=== PATIENT | female | born 1985 | race Two or more races ===

== ENCOUNTER 2024-01-03 09:17 | Outpatient (AMB) | payer OTHER, SELFPAY ==
--- NOTE | 2024-01-03 09:31 | A.OFFPC_ITS ---
Vital Signs 01/03/24 09:47 Height 5 ft 1.22 in Weight 247 lb 4 oz BMI 46.4 BP 112/74 Blood Pressure Location Rt brachial Position Sitting Respiration 16 Pulse 75 Pulse Source Pulse Oximeter Temp 98.8 F Temp Source Oral Pulse Oximetry (%) 98 Oxygen Delivery Method Room Air Intake Visit Reasons: New patient Intake Note: New patient visit. Taking Bisoprolol hydrochlorothiazide 12.5 mg, from [facility]. Clinical Nurse Reviewer Required: Yes Allergies No Known Allergies Allergy (Verified 01/03/24 09:37) Medication List - Last Reconciled 01/03/24 by Deanne Fox PA-C bisoprolol fumarate 5 mg PO DAILY hydrochlorothiazide 12.5 mg PO QAM Tobacco use date assessed: 01/03/24 Dental Screening Dental Screen Date: 01/03/24 Did you have a dental visit in the last 12 months?: Yes Did you have a dental problem in the last 6 months where you did not have access to dental care?: No Was dental information given to patient?: Patient has dentist HPI New patient HPI Details Pt is a 38 y/o female who presents today to [facility]. She moved from the to [place] in August. She reports a hx of htn, paroxysmal SVT, uterine fibroids. 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 She does get palpitations but it is much more infrequent. She notices it mostly at night. No dizziness, sob or chest pain, even when she gets the sx. She has never had a sleep study. She does report that she snores often at night and does feel tired somewhat during the day. She states her blood pressure has been well-controlled with hydrochlorothiazide and bisoprolol 5 mg. She states when they added on the beta-jo it has helped the palpitations but she still does get them. -She did have 2 holter monitors which sh owed, nsr and episodes of ventricular bigeminy and SVT. She does have copies of her Holter monitors. General: She would like to discuss weight loss drugs and or surgery. She says that she wants her labs checked to see if she would be a candidate for something such as Mounjaro. She is tried diets in the past with calorie restriction and exercise but has never really been able to maintain a weight loss. Her BMI is 46. 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 Fam hx of prostate ca in father PFSH Medical History (Updated 01/03/24 @ 10:21 by Deanne Fox PA-C) Snoring PSVT (paroxysmal supraventricular tachycardia) Sinusitis Asthma Thyroid disease Palpitations HTN (hypertension) Surgical History (Updated 01/03/24 @ 09:53 by Bárbara Araiza CMA) S/P bilateral breast reduction H/O myomectomy Family History (Updated 01/03/24 @ 09:52 by Bárbara Araiza CMA) Mother Asthma HTN (hypertension) Thyroid disorder Father HTN (hypertension) Hypercholesteremia Cancer Social History (Updated 01/03/24 @ 09:45 by Bárbara Araiza CMA) Housing: Apartment Patient Tobacco Use Status: Former Tobacco user Tobacco use type: Cigarette Cigarettes Per Day: 6 Years Smoked: 5 quit 08/2023 e-Cigarette/Vaping Use: Never Used service: No Current occupational status: employed 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 Current occupational exposures/hazards: No Cognitive needs: No Hearing needs: No Vision needs: No Questionnaire PHQ-9 Over the last 2 weeks, how often have you been bothered by any of the following problems? 1. Little interest or pleasure in doing things: not at all 2. Feeling down, depressed, or hopeless: not at all 3. Trouble falling or staying asleep, or sleeping too much: not at all 4. Feeling tired or having little energy: not at all 5. Poor appetite or overeating: not at all 6. Feeling bad about yourself - or that you are a failure or have let yourself or your family down: not at all 7. Trouble concentrating on things, such as reading the newspaper or watching television: not at all 8. Moving or speaking so slowly that other people could have noticed. Or the opposite - being so fidgety or restless that you have been moving around a lot more than usual: not at all 9. Thoughts that you would be better off or of hurting yourself in some way: not at all Total score: 0 Depression Screening Interpretation: Negative Depression Screening Done: Yes 73782 - PHQ-9 Billing: Yes Source: Developed by Drs. Ernesto Dasilva, Lesley Morris, Emmanuel Billy and colleagues, with an educational reese from [employer]. Thrive Questionnaire Date Thrive assessed: 01/03/24 I am a: Patient What is your living situation today?: I have a steady place to live Within the past 12 months, did the food you bought not last and you didn't have the money to get more?: Never true Within the past 12 months, did you worry whether your food would run out before you got money to buy more?: Never true Do you have trouble paying for medicines?: No Do you have trouble getting transportation to medical appointments?: No Do you have trouble paying your heating and electricity bill?: No Do you have trouble taking care of your child, family member or friend?: No Do you have trouble with day-to-day activities such as bathing, preparing meals, shopping, managing finances, etc.?: No Are you currently unemployed and looking for a job?: No Are you interested in more education?: No Please select the resources that you would like help with: None Currently or been in a relationship where the following occur: no concerns reported THRIVE Score: 0 AUDIT C Alcohol Use Questionnaire (AUDIT-C) 1. How often do you have a drink containing alcohol?: Monthly or less 2. How many drinks containing alcohol do you have on a typical day when you are drinking?: 1 or 2 (2-3 beers) 3. How often do you have six or more drinks on one occasion?: Never Total Score: 1 JIMMY-7 AMB Questionnaire JIMMY-7 Date JIMMY - 7 assessed: 01/03/24 Feeling nervous, anxious, or on edge: 0 = Not at all Not being able to stop or control worryin = Not at all Worrying too much about different things: 0 = Not at all Trouble relaxin = Not at all Being so restless that it is hard to sit still: 0 = Not at all Becoming easily annoyed or irritable: 0 = Not at all Feeling afraid as if something awful might happen: 0 = Not at all Total JIMMY-7 score (0-4 normal; 5-9 mild; 10-14 moderate; 15-21 severe): 0 Source: Developed by Drs. Ernesto Dasilva, Lesley Morris, Emmanuel Billy and colleagues, with an educational reese from [employer]. JIMMY-7 Assessment Billing JIMMY-7 Assessment Tool: JIMMY-7 Assessment 86732 ACT Questionnaire In the past 4 weeks, how much of the time did your asthma keep you from getting as much done at work, school or at home?: None of the time During the past 4 weeks, how often have you had shortness of breath?: Not at all During the past 4 weeks, how often did your asthma symptoms wake you up at night or earlier than usual in the morning?: Not at all During the past 4 weeks, how often have you had to use your rescue inhaler or nebulizer medication?: Not at all How would you rate your asthma control during the past 4 weeks?: Completely controlled ACT Interpretation: Negative Score: 25 Physical exam (Primary Care) Vital Signs: Last Vital Signs Temp 98.8 F 01/03/24 09:47 Pulse 75 01/03/24 09:47 Resp 16 01/03/24 09:47 BP 112/74 01/03/24 09:47 Pulse Ox 98 01/03/24 09:47 Oxygen Delivery Method Room Air 01/03/24 09:47 BMI result Body Mass Index 46.4 BMI Assessment/Plan discussion: High (discussed meds) BMI High, discussed plan: lifestyle, weight reduction, dietary and physical activity Tobacco/Smoking Status: Tobacco use Status Tobacco use date assessed 01/03/24 01/03/24 09:54 Patient Tobacco Use Status Former Tobacco user 01/03/24 09:54 Tobacco use type Cigarette 01/03/24 09:54 e-Cigarette/Vaping Use Never Used 01/03/24 09:54 PHQ-9: PHQ-9 Score PHQ-9: Total score 0 01/03/24 10:10 Depression Screening Interpretation: Negative Thrive Assessment: Date of Thrive Assessment Date Thrive assessed 01/03/24 01/03/24 09:54 Currently or been in a relationship where the following occur: no concerns reported Const Orientation/consciousness: patient oriented x3 HENMT Ears: hearing grossly normal bilaterally Neck Thyroid: Thyroid normal Lymphatic: no lymphadenopathy noted Resp Auscultation: clear to auscultation bilaterally Cardio Rate: regular rate Rhythm: regular rhythm Heart sounds: S1 normal heart sound present and S2 normal heart sound present GI Inspection: Yes normal to inspection Palpation (GI): Soft to palpation and Other GI palpation findings present (nontender, no cva tenderness) Auscultation: normoactive bowel sounds Rectal Exam - Female: deferred Skin General skin exam: no rashes or lesions noted Neuro General: patient oriented x3, gait normal and no focal motor deficits Assessment and Plan Assessment & Plan (1) HTN (hypertension): Code(s): I10 - Essential (primary) hypertension Qualifiers: Hypertension type: primary hypertension Qualified Code(s): I10 - Essential (primary) hypertension Plan: continue current treatment plan (2) PSVT (paroxysmal supraventricular tachycardia): Code(s): I47.10 - Supraventricular tachycardia, unspecified Plan: Advised to bring a copy of her Holter monitors to her cardiology appointment. Referral placed. Continue with the bisoprolol. Medications refilled. Labs ordered. (3) Palpitations: Code(s): R00.2 - Palpitations Plan: As above (4) Snoring: Code(s): R06.83 - Snoring Plan: Sleep study ordered. Weight loss encouraged. Orders: Orders Comprehensive [place]. Panel Fast Today I10 - Essential (primary) hypertension, I47.10 - Supraventricular tachycardia, unspecified, R00.2 - Palpitations Lipid Panel Today I10 - Essential (primary) hypertension, I47.10 - Supravent ricular tachycardia, unspecified, R00.2 - Palpitations TSH reflex Free T4 Today I10 - Essential (primary) hypertension, I47.10 - Supraventricular tachycardia, unspecified, R00.2 - Palpitations Complete Blood Count Auto Diff Today I10 - Essential (primary) hypertension, I47.10 - Supraventricular tachycardia, unspecified, R00.2 - Palpitations Vitamin B12 and Folate Today I10 - Essential (primary) hypertension, I47.10 - Supraventricular tachycardia, unspecified, R00.2 - Palpitations RT home sleep study Today I10 - Essential (primary) hypertension, I47.10 - Supraventricular tachycardia, unspecified, R06.83 - Snoring Referrals VENEER PULLER Referral Z01.419 - Encounter for gynecological examination (general) (routine) without abnormal findings Cardiology Referral I10 - Essential (primary) hypertension, I47.10 - Supraventricular tachycardia, unspecified, R00.2 - Palpitations Medications: New hydrochlorothiazide 12.5 mg PO QAM 90 caps 1RF bisoprolol fumarate 5 mg PO DAILY 90 tabs 0RF Coding Level of Care Code New Pt Level 4 (66414) Complex EM visit Add On G2211 Diagnoses Primary hypertension I10 Hypertension type: primary hypertension PSVT (paroxysmal supraventricular tachycardia) I47.10 Palpitations R00.2 Snoring R06.83 Additional Codes JIMMY-7 Assessment Billing - JIMMY-7 Assessment Tool: JIMMY-7 Assessment 02800 ([id number])
[2024-01-03 09:47] VITALS: BP 112/74; PULSE 75; RESP 16; TEMP 37.1; O2SAT 98; BMI 46.4
== END 2024-01-03 10:33 | disposition home or self-care (01) ==
PROVIDERS: PCP Physician Assistant; Visit Provider Physician Assistant
DX: I10 Essential (primary) hypertension (principal); I47.10 Supraventricular tachycardia, unspecified; R00.2 Palpitations; R06.83 Snoring
CPT/HCPCS: 99204; G2211

== ENCOUNTER 2024-01-04 09:37 | Outpatient (REF) | payer OTHER, SELFPAY ==
[2024-01-04 11:40] LABS: MANUAL DIFF FLAG NO
[2024-01-04 11:50] LABS: Basophils Percent Auto 0.4 % (0-2); Eosinophils Absolute Auto 0.1 X10*3/uL (0.0-0.4); Eosinophils Percent Auto 1.7 % (0-4); Hematocrit 36.7 % (37.0-47.0); Hemoglobin 11.6 g/dl (12.0-16.0); Imm Gran Abs Auto 0.04 X10*3/uL (0.00-0.03); Imm Gran Pct Auto 0.5 % (0.0-0.4); Lymphocytes Absolute Auto 2.4 X10*3/uL (1.2-4.9); Lymphocytes Percent Auto 28.7 % (20-40); Mean Corpuscular HGB Conc 31.6 g/dl (31.0-35.0); Mean Corpuscular Hemoglobin 26.4 pg (27.0-33.0); Mean Corpuscular Volume 83.6 fL (80.0-98.0); Monocytes Absolute Auto 0.6 X10*3/uL (0.1-1.2); Monocytes Percent Auto 6.7 % (2-11); Neutrophils Absolute Auto 5.1 x10*3/uL (2.0-8.3); Platelet Count 396 X10*3/uL (160-400); Red Blood Count 4.39 X10*6/uL (4.20-5.50); Red Cell Distribution Width 13.6 % (11.0-16.0); White Blood Count 8.2 X10*3/uL (4.8-10.8)
[2024-01-04 12:40] LABS: Alanine Aminotransferase 15 U/L (0-31); Albumin Level 3.6 g/dL (3.5-5.0); Alkaline Phosphatase 80 U/L (39-117); Anion Gap 9 (12-20); Aspartate Amino Transferase 14 U/L (5-31); Bilirubin Total 0.2 mg/dL (0.0-1.0); Blood Urea Nitrogen 14 mg/dL (9-16); Calcium 9.1 mg/dL (8.4-10.2); Carbon Dioxide 26 mmol/L (22-29); Chloride 107 mmol/L (96-108); Cholesterol 204 mg/dL (<200); Estimated Glomerular Filt Rate > 60; Glucose Fasting 95 mg/dL (60-99); HDL Cholesterol 64 mg/dL (>40); LDL Cholesterol Calculated 124 mg/dL (<100); Potassium 3.9 mmol/L (3.3-5.1); Sodium 138 mmol/L (135-145); Total Protein 7.1 g/dL (6.5-8.0); Triglycerides 83 mg/dL (<150)
[2024-01-04 12:43] LABS: TSH reflex Free T4 1.41 uIU/mL (0.32-4.0)
[2024-01-04 12:56] LABS: Folate 9.8 ng/mL (> or = 4.0); Vitamin B12 446 pg/mL (200-900)
== END 2024-01-04 09:38 | disposition home or self-care (01) ==
LOC: HO.WFDLDS 09:37
PROVIDERS: Visit Provider Physician Assistant
DX: R00.2 Palpitations (principal); I47.10 Supraventricular tachycardia, unspecified; I10 Essential (primary) hypertension
CPT/HCPCS: 36415; 80053; 80061; 82607; 82746; 84443; 85025

== ENCOUNTER 2024-02-07 08:44 | Outpatient (AMB) | payer OTHER, SELFPAY ==
--- NOTE | 2024-02-07 08:48 | A.OFFPC_ITS ---
Vital Signs 02/07/24 08:59 Height 5 ft 1.22 in Weight 248 lb 2 oz BMI 46.5 BP 112/68 Blood Pressure Location Rt brachial Position Sitting Respiration 16 Pulse 70 Pulse Source Pulse Oximeter Pulse Oximetry (%) 97 Oxygen Delivery Method Room Air Intake Visit Reasons: f/u weight loss drugs, bp Customer Service Teller Required: Yes Customer Service Teller Language: Manager Lighting Name: Yuriy [id number] Is last menstrual period known: Yes Last menstrual period: 01/17/24 Allergies No Known Allergies Allergy (Verified 02/07/24 08:58) Medication List - Last Reconciled 02/07/24 by Deanne Fox PA-C bisoprolol fumarate 5 mg PO DAILY hydrochlorothiazide 12.5 mg PO QAM Tobacco use date assessed: 01/03/24 Dental Screening Dental Screen Date: 01/03/24 HPI f/u weight loss drugs, bp HPI Details Patient is a 38-year-old female who presents today for a follow up. She has a significant past medical history of SVT, hypertension and obesity. 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 She would also like to try 1 of the weight loss injections. She has been trying for years with diet and exercise. She tries to restrict her calories. She has tried different programs like weight watchers. She has tried low carb diets. CV: Blood pressure today in the office is 112/68. She is currently on hydrochlorothiazide 12.5 mg and bisoprolol 5 mg daily. She has a appointment scheduled with carriage operator and Cardiology. [facility] Medical History (Updated 02/07/24 @ 09:29 by Deanne Fox PA-C) Snoring PSVT (paroxysmal supraventricular tachycardia) Sinusitis Asthma Thyroid disease Palpitations HTN (hypertension) Surgical History (Updated 01/03/24 @ 09:53 by Bárbara Araiza CMA) S/P bilateral breast reduction H/O myomectomy Family History (Updated 01/03/24 @ 09:52 by Bárbara Araiza CMA) Mother Asthma HTN (hypertension) Thyroid disorder Father HTN (hypertension) Hypercholesteremia Cancer Social History (Updated 01/03/24 @ 09:45 by Bárbara Araiza CMA) Housing: Apartment Patient Tobacco Use Status: Former Tobacco user Tobacco use type: Cigarette Cigarettes Per Day: 6 Years Smoked: 5 quit 08/2023 e-Cigarette/Vaping Use: Never Used service: No Current occupational status: employed 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 Current occupational exposures/hazards: No Cognitive needs: No Hearing needs: No Vision needs: No Female Reproductive History Menstrual Date of last menstrual period: 01/17/24 Questionnaire Thrive Questionnaire Date Thrive assessed: 01/03/24 JIMMY-7 AMB Questionnaire JIMMY-7 Date JIMMY - 7 assessed: 01/03/24 Source: Developed by Drs. Ernesto Dasilva, Lesley Morris, Emmanuel Billy and colleagues, with an educational reese from [employer]. Physical exam (Primary Care) Vital Signs: Last Vital Signs Pulse 70 02/07/24 08:59 Resp 16 02/07/24 08:59 BP 112/68 02/07/24 08:59 Pulse Ox 97 02/07/24 08:59 Oxygen Delivery Method Room Air 02/07/24 08:59 BMI result Body Mass Index 46.5 BMI Assessment/Plan discussion: High (zepbound ordered) BMI High, discussed plan: lifestyle, weight reduction, dietary and physical activity Tobacco/Smoking Status: Tobacco use Status Tobacco use date assessed 01/03/24 02/07/24 08:48 Patient Tobacco Use Status Former Tobacco user 02/07/24 08:48 Tobacco use type Cigarette 02/07/24 08:48 e-Cigarette/Vaping Use Never Used 02/07/24 08:48 Thrive Assessment: Date of Thrive Assessment Date Thrive assessed 01/03/24 02/07/24 08:48 Const Orientation/consciousness: patient oriented x3 HENMT Ears: hearing grossly normal bilaterally Neck Thyroid: Thyroid normal Lymphatic: no lymphadenopathy noted Resp Auscultation: clear to auscultation bilaterally Cardio Rate: regular rate Rhythm: regular rhythm Heart sounds: S1 normal heart sound present and S2 normal heart sound present GI Inspection: Yes normal to inspection Palpation (GI): Soft to palpation and Other GI palpation findings present (nontender, no cva tenderness) Auscultation: normoactive bowel sounds Rectal Exam - Female: deferred Skin General skin exam: no rashes or lesions noted Neuro General: patient oriented x3, gait normal and no focal motor deficits Results Reviewed Results Reviewed: Laboratory Tests 01/04/24 09:38 WBC 8.2 Hgb 11.6 L Hct 36.7 L Plt Count 396 Sodium 138 Potassium 3.9 Chloride 107 Anion Gap 9 L BUN 14 Creatinine 0.68 Estimated GFR > 60 Fasting Glucose 95 Calcium 9.1 AST 14 ALT 15 Triglycerides 83 Cholesterol 204 H LDL Cholesterol, Calc 124 H HDL Cholesterol 64 Assessment and Plan Assessment & Plan (1) Obesity, Class I, BMI 30-34.9: Code(s): E66.9 - Obesity, unspecified Plan: zepbound ordered. We discussed risks, benefits and adverse effects of this medication including nausea, vomiting, diarrhea, constipation, increased risk of pancreatitis etc.. Referral to bariatric surgery. (2) HTN (hypertension): Code(s): I10 - Essential (primary) hypertension Qualifiers: Hypertension type: primary hypertension Qualified Code(s): I10 - Essential (primary) hypertension Plan: Continue current regimen. Well-controlled Orders: Referrals Bariatric Surgery Referral E66.9 - Obesity, unspecified Medications: New tirzepatide (weight loss) (Zepbound) 2.5 mg (0.5 mL) subcut QWEEK 4 weeks 2 mL 0RF Coding Level of Care Code Est Pt Level 4 (45334) Diagnoses Obesity, Class I, BMI 30-34.9 E66.9 Primary hypertension I10 Hypertension type: primary hypertension
[2024-02-07 08:59] VITALS: BP 112/68; PULSE 70; RESP 16; O2SAT 97; BMI 46.5
== END 2024-02-07 09:43 | disposition home or self-care (01) ==
PROVIDERS: PCP Physician Assistant; Visit Provider Physician Assistant
DX: I10 Essential (primary) hypertension (principal); E66.9 Obesity, unspecified; Z68.42 Body mass index [BMI] 45.0-49.9, adult
CPT/HCPCS: 99214

== ENCOUNTER → 2024-03-14 10:31 | Outpatient (REF) | payer OTHER, SELFPAY | LOC: HO.SL 10:31 | PROVIDERS: PCP Physician Assistant; Visit Provider Physician Assistant | DX: I47.10 Supraventricular tachycardia, unspecified (principal); I10 Essential (primary) hypertension; R06.83 Snoring | CPT/HCPCS: 95806 ==

== ENCOUNTER → 2024-03-14 10:52 | Outpatient (BNV) | payer OTHER, SELFPAY | PROVIDERS: PCP Physician Assistant; Visit Provider Internal Medicine | DX: R06.83 Snoring (principal) | CPT/HCPCS: 95806 ==

== ENCOUNTER 2024-04-29 11:40 | Outpatient (REF) | payer BC, SELFPAY | END 2024-04-29 11:41 | disposition home or self-care (01) | LOC: HO.LNP 11:40 | PROVIDERS: PCP Physician Assistant; Visit Provider Obstetrics & Gynecology | DX: Z13.89 Encounter for screening for other disorder (principal) ==

== ENCOUNTER 2024-04-29 11:40 | Outpatient (AMB) | payer OTHER, SELFPAY ==
[2024-04-29 11:52] VITALS: BMI 46.3
--- NOTE | 2024-04-29 11:52 | MHC.OFFVIS ---
Vital Signs 04/29/24 11:52 Height 5 ft 1 in Weight 245 lb BMI 46.3 Intake Visit Reasons: OREMAN annual exam/referral National Sales Representative Required: Yes National Sales Representative Language: Oil Field Operator Services: National Sales Representative Present (in person) National Sales Representative Name: Deepthi TAPIA Information Interpreted: non-clinical & clinical Spanish Speaking Nanny: Spanish Speaking Nanny Present (Deepthi TAPIA) Accompanied by: Self / Same As Patient Allergies No Known Allergies Allergy (Verified 04/29/24 11:58) Is last menstrual period known: Yes Last menstrual period: 04/05/24 HPI Comments Details: Presenting for annual exam. Complaining of heavy menstrual cycles associated with passage of blood clots and pelvic cramping Last Pap/HPV ? 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 Current occupational exposures/hazards: No Cognitive needs: No Hearing needs: No Vision needs: No Female Reproductive History Menstrual Age of Menarche: 10 Duration of menses: 8-10 days Date of last menstrual period: 04/05/24 control method: condoms Total pregnancies: 1 Number of Living Children: 0 Ab spontaneous: 1 Review of Systems Const All systems reviewed & are unremarkable except as noted in HPI and below Card Reports as per HPI Resp Reports as per HPI GI Reports as per HPI and Reports no additional complaints Reports as per HPI Physical Exam Vital Signs: BMI result Body Mass Index 46.3 Const General: cooperative, healthy appearing and comfortable Chest Chest palpation & inspection: normal inspection of the chest and normal palpation of entire chest wall Breast/axilla inspection: normal inspection of the breasts and normal inspection of the axillae Breast/axilla palpation: normal palpation of the breasts, normal palpation of the axillae and no axillary lymphadenopathy Resp Effort & Inspection: normal respiratory effort Auscultation: clear to auscultation bilaterally Percussion: percussion normal Cardio Palpation: normal PMI Rate: regular rate Rhythm: regular rhythm Heart sounds: no murmurs and no rubs Peripheral pulses: Peripheral pulses 2+ throughout GI Inspection: Yes normal to inspection Palpation (GI): Soft to palpation, nontender, no guarding, not rigid and No hepatosplenomegaly present Percussion: Yes normal to percussion Auscultation: normal bowel sounds Rectal Exam - Female: deferred General: Yes bladder normal to palpation External Female Exam: No lesion Speculum Exam - Vagina: normal appearance of the vagina, normal palpation, normal vaginal discharge and not erythematous Speculum Exam - Cervix: normal appearance of the cervix and normal palpation Bimanual exam- vagina & uterus: normal bimanual exam, normal palpation, uterine size normal, bladder normal to palpation, consistency normal and normal palpation Bimanual Exam- Adnexa, other: normal adnexae, no masses and no tenderness Assessment & Plan Assessment & Plan (1) Well woman exam: Comment: History of NESTOR 3 in 2014 status post laser treatment Code(s): Z01.419 - Encounter for gynecological examination (general) (routine) without abnormal findings Category: Medical Plan: Cotesting done. Mammogram ordered. Counseled the patient about the recommended dietary allowance of 1000 mg of Calcium & 600 IU of vitamin D. The patient was instructed to perform monthly self-breast exams and to schedule an annual exam in a year; All questions answered and the patient verbalized understanding. Instructed the patient to schedule annual exam in a year (2) Abnormal uterine bleeding: Comment: History of myomectomy Code(s): N93.9 - Abnormal uterine and vaginal bleeding, unspecified Category: Medical Plan: Co testing done, GC and chlamydia taken CBC, TSH, prolactin, HCG, and pelvic ultrasound ordered. Discussed with the patient the different causes of abnormal bleeding including thyroid disorders, uterine and ovarian pathology, endometrial hyperplasia, carcinoma and other potential causes. Discussed with the patient the work up including CBC (to r/o anemia), TSH, prolactin, pelvic Ultrasound, endometrial biopsy to r/o endometrial pathology. All questions answered and the patient verbalized understanding. Instructed the patient to schedule an appointment for an endometrial biopsy in 2 weeks. Orders: Orders PAP + HPV E6/E7 rfx Today Z01.419 - Encounter for gynecological examination (general) (routine) without abnormal findings Complete Blood Count no Diff Today N93.9 - Abnormal uterine and vaginal bleeding, unspecified US pelvic and transvaginal Today N93.9 - Abnormal uterine and vaginal bleeding, unspecified Prolactin Today N93.9 - Abnormal uterine and vaginal bleeding, unspecified MM tomosynthesis screening BI Today Z12.31 - Encounter for screening mammogram for malignant neoplasm of breast CT NG by PCR Today Z01.419 - Encounter for gynecological examination (general) (routine) without abnormal findings TSH reflex Free T4 Today N93.9 - Abnormal uterine and vaginal bleeding, unspecified HCG Quantitative Today N93.9 - Abnormal uterine and vaginal bleeding, unspecified Coding Level of Care Code New Pt Prev Care 18-39yr([id number] Diagnoses Well woman exam Z01.419 Abnormal uterine bleeding N93.9
== END 2024-04-29 12:38 | disposition home or self-care (01) ==
PROVIDERS: PCP Physician Assistant; Visit Provider Obstetrics & Gynecology
DX: Z01.419 Encounter for gynecological examination (general) (routine) without abnormal findings (principal); N93.9 Abnormal uterine and vaginal bleeding, unspecified
CPT/HCPCS: 99385

== ENCOUNTER 2024-04-29 12:23 | Outpatient (REF) | payer OTHER, SELFPAY ==
[2024-04-29 12:58] LABS: Hematocrit 36.8 % (37.0-47.0); Hemoglobin 11.7 g/dl (12.0-16.0); Mean Corpuscular HGB Conc 31.8 g/dl (31.0-35.0); Mean Corpuscular Hemoglobin 25.8 pg (27.0-33.0); Mean Corpuscular Volume 81.2 fL (80.0-98.0); Mean Platelet Volume 9.2 fL (9.4-12.3); Platelet Count 414 X10*3/uL (160-400); Red Blood Count 4.53 X10*6/uL (4.20-5.50); Red Cell Distribution Width 14.1 % (11.0-16.0); White Blood Count 11.6 X10*3/uL (4.8-10.8)
[2024-04-29 14:01] LABS: HCG Quantitative < 2 mIU/mL; TSH reflex Free T4 1.14 uIU/mL (0.32-4.0)
[2024-04-30 09:14] LABS: CT PCR NOT DETECTED (Not Detect.); NG PCR NOT DETECTED (Not Detect.)
[2024-05-02 16:23] LABS: HPV mRNA E6/E7 Not Detected (Not Detected)
== END 2024-04-29 12:24 | disposition home or self-care (01) ==
LOC: HO.LAB 12:23
PROVIDERS: PCP Physician Assistant; Visit Provider Obstetrics & Gynecology
DX: Z01.419 Encounter for gynecological examination (general) (routine) without abnormal findings (principal); N93.9 Abnormal uterine and vaginal bleeding, unspecified
CPT/HCPCS: 36415; 84146; 84443; 84702; 85027; 87491; 87591; 87624; 88175

== ENCOUNTER 2024-05-01 13:46 | Outpatient (AMB) | payer OTHER, SELFPAY ==
--- NOTE | 2024-05-01 13:52 | A.OFFPC_ITS ---
Vital Signs 05/01/24 13:53 Height 5 ft 1 in Weight 248 lb 4 oz BMI 46.9 BP 98/70 Blood Pressure Location Lt brachial Position Sitting Pulse 88 Pulse Source Pulse Oximeter Pulse Oximetry (%) 98 Oxygen Delivery Method Room Air Intake Visit Reasons: f/u weight loss Intake Note: Follow up. Insurance wont cover anything for weight loss. Allergies No Known Allergies Allergy (Verified 05/01/24 13:53) Medication List - Last Reconciled 05/01/24 by Deanne Fox PA-C bisoprolol fumarate 5 mg PO DAILY hydrochlorothiazide 12.5 mg PO QAM Tobacco use date assessed: 01/03/24 Dental Screening Dental Screen Date: 01/03/24 HPI f/u weight loss HPI Details Patient is a 38-year-old female who presents today for a follow up. She declines using a direct service provider today as she feels comfortable with Hungarian. She is able to reiterate this without any difficulty. In the past and we used a direct service provider we have rarely used assistance from the direct service provider. General: We tried to get Wegovy covered through her insurance but her insurance denied all weight loss drugs. She tells me that she is looking into going through a compound pharmacy. She wants to hold off on bariatric surgery if she can. CV: Has an appointment coming up with Cardiology. Blood pressure today in the office is 98/70. She is on bisoprolol 5 mg daily and hydrochlorothiazide 12.5 mg every morning. She states that her blood pressures have been ranging on the lower side. If she could come off of a medication she would like to. 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 Has a pelvic ultrasound ordered. Her last labs did show a mild anemia and she states that she is tired especially around her.. She is not on any iron supplements. She has a mammogram ordered. Musculoskeletal: She does complain today of left shoulder pain and back pain. This started a couple weeks ago. She says that she lifted something heavy and felt immediate discomfort in her left shoulder. She says that she has full range of motion but rotation of the shoulder does elicit discomfort. She worries about her rotator cuff. 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 She has been working on some massage and stretching and would like to see Physical therapy. The back pain does not radiate down her legs. Denies any weakness, bowel or bladder dysfunction. No paresthesias. PULM: Requests a refill on her montelukast. States that she uses this for her asthma prevention. Rarely needs to use her albuterol. [facility] Medical History NESTOR III (cervical intraepithelial neoplasia grade III) with severe dysplasia Snoring PSVT (paroxysmal supraventricular tachycardia) Sinusitis Asthma Thyroid disease Palpitations HTN (hypertension) Surgical History S/P bilateral breast reduction H/O myomectomy Family History Mother Asthma HTN (hypertension) Thyroid disorder Father HTN (hypertension) Hypercholesteremia Cancer Social History Housing: Apartment Patient Tobacco Use Status: Former Tobacco user Tobacco use type: Cigarette Cigarettes Per Day: 6 Years Smoked: 5 quit 08/2023 e-Cigarette/Vaping Use: Never Used service: No Current occupational status: employed 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 Current occupational exposures/hazards: No Cognitive needs: No Hearing needs: No Vision needs: No Female Reproductive History Menstrual Age of Menarche: 10 Questionnaire PHQ-9 Over the last 2 weeks, how often have you been bothered by any of the following problems? 1. Little interest or pleasure in doing things: not at all 2. Feeling down, depressed, or hopeless: not at all 3. Trouble falling or staying asleep, or sleeping too much: not at all 4. Feeling tired or having little energy: several days 5. Poor appetite or overeating: not at all 6. Feeling bad about yourself - or that you are a failure or have let yourself or your family down: not at all 7. Trouble concentrating on things, such as reading the newspaper or watching television: not at all 8. Moving or speaking so slowly that other people could have noticed. Or the opposite - being so fidgety or restless that you have been moving around a lot more than usual: not at all 9. Thoughts that you would be better off or of hurting yourself in some way: not at all Total score: 1 Source: Developed by Drs. Ernesto Dasilva, Lesley Morris, Emmanuel Billy and colleagues, with an educational reese from [employer]. Thrive Questionnaire Date Thrive assessed: 01/03/24 I am a: Patient What is your living situation today?: I have a steady place to live Within the past 12 months, did the food you bought not last and you didn't have the money to get more?: Often true Within the past 12 months, did you worry whether your food would run out before you got money to buy more?: I choose not to answer this question Do you have trouble paying for medicines?: No Do you have trouble getting transportation to medical appointments?: No Do you have trouble paying your heating and electricity bill?: No Do you have trouble taking care of your child, family member or friend?: No Do you have trouble with day-to-day activities such as bathing, preparing meals, shopping, managing finances, etc.?: No Are you currently unemployed and looking for a job?: No Are you interested in more education?: No Please select the resources that you would like help with: None Currently or been in a relationship where the following occur: No concerns reported THRIVE Score: 1 AUDIT C Alcohol Use Questionnaire (AUDIT-C) 1. How often do you have a drink containing alcohol?: Never Total Score: 0 JIMMY-7 AMB Questionnaire JMIMY-7 Date JIMMY - 7 assessed: 01/03/24 Feeling nervous, anxious, or on edge: 0 = Not at all Not being able to stop or control worryin = Not at all Worrying too much about different things: 0 = Not at all Trouble relaxin = Not at all Being so restless that it is hard to sit still: 0 = Not at all Becoming easily annoyed or irritable: 0 = Not at all Feeling afraid as if something awful might happen: 0 = Not at all Total JIMMY-7 score (0-4 normal; 5-9 mild; 10-14 moderate; 15-21 severe): 0 Source: Developed by Drs. Ernesto Dasilva, Lesley Morris, Emmanuel Billy and colleagues, with an educational reese from [employer]. Physical exam (Primary Care) Vital Signs: Last Vital Signs Pulse 88 05/01/24 13:53 BP 98/70 05/01/24 13:53 Pulse Ox 98 05/01/24 13:53 Oxygen Delivery Method Room Air 05/01/24 13:53 BMI result Body Mass Index 46.9 Tobacco/Smoking Status: Tobacco use Status Tobacco use date assessed 01/03/24 05/01/24 13:57 Patient Tobacco Use Status Former Tobacco user 05/01/24 13:57 Tobacco use type Cigarette 05/01/24 13:57 e-Cigarette/Vaping Use Never Used 05/01/24 13:57 PHQ-9: PHQ-9 Score PHQ-9: Total score 1 05/01/24 13:57 Thrive Assessment: Date of Thrive Assessment Date Thrive assessed 01/03/24 05/01/24 13:57 Currently or been in a relationship where the following occur: No concerns reported Const Orientation/consciousness: patient oriented x3 HENMT Ears: hearing grossly normal bilaterally Neck Thyroid: Thyroid normal Lymphatic: no lymphadenopathy noted Resp Auscultation: clear to auscultation bilaterally Cardio Rate: regular rate Rhythm: regular rhythm Heart sounds: S1 normal heart sound present and S2 normal heart sound present Skin General skin exam: no rashes or lesions noted Neuro General: patient oriented x3, gait normal and no focal motor deficits Extrem Other: There is tenderness to palpation in the left subacromial space. Full range of motion although internal and external rotation elicits discomfort. Empty can tests elicits pain. General: Yes normal to inspection and Yes full ROM Coding Level of Care Code Est Pt Level 4 (61269) Complex EM visit Add On G2211 Diagnoses Anemia D64.9 Lumbar pain M54.50 Left shoulder pain M25.512 Primary hypertension I10 Hypertension type: primary hypertension Assessment & Plan Assessment & Plan (1) Anemia: Code(s): D64.9 - Anemia, unspecified Category: Medical Plan: Discuss possible we starting an iron supplement. We will check today. (2) Lumbar pain: Code(s): M54.50 - Low back pain, unspecified Category: Medical Plan: X-ray ordered. Referral to PT (3) Left shoulder pain: Code(s): M25.512 - Pain in left shoulder Category: Medical Plan: As above (4) HTN (hypertension): Code(s): I10 - Essential (primary) hypertension Category: Medical Qualifiers: Hypertension type: primary hypertension Qualified Code(s): I10 - Essential (primary) hypertension Plan: We will discontinue hydrochlorothiazide. Continue with bisoprolol. Follow up in 3 months. Sooner if needed. Patient understands and agrees with this plan. Orders: Orders XR shoulder LT min 2V Today M25.512 - Pain in left shoulder Complete Blood Count Auto Diff Today D64.9 - Anemia, unspecified IRON PROFILE Today D64.9 - Anemia, unspecified Ferritin Today D64.9 - Anemia, unspecified XR lumbar spine 2-3V Today M54.50 - Low back pain, unspecified PT Evaluation and Treatment Today M25.512 - Pain in left shoulder, M54.50 - Low back pain, unspecified Medications: New montelukast 10 mg PO DAILY 90 tabs 2RF Discontinued hydrochlorothiazide Discontinued Reason: Doctor's Order 12.5 mg PO QAM 90 caps 1RF
[2024-05-01 13:53] VITALS: BP 98/70; PULSE 88; O2SAT 98; BMI 46.9
== END 2024-05-01 14:34 | disposition home or self-care (01) ==
PROVIDERS: PCP Physician Assistant; Visit Provider Physician Assistant
DX: D64.9 Anemia, unspecified (principal); M54.50 Low back pain, unspecified; M25.512 Pain in left shoulder; I10 Essential (primary) hypertension

== ENCOUNTER → 2024-05-01 13:46 | Outpatient (BNVA) | payer OTHER, SELFPAY | PROVIDERS: PCP Physician Assistant; Visit Provider Physician Assistant ==

== ENCOUNTER 2024-05-01 14:41 | Outpatient (REF) | payer OTHER, SELFPAY ==
[2024-05-01 17:33] LABS: MANUAL DIFF FLAG NO
[2024-05-01 17:42] LABS: Basophils Percent Auto 0.3 % (0-2); Eosinophils Absolute Auto 0.2 X10*3/uL (0.0-0.4); Eosinophils Percent Auto 1.3 % (0-4); Hematocrit 36.3 % (37.0-47.0); Hemoglobin 11.6 g/dl (12.0-16.0); Imm Gran Abs Auto 0.07 X10*3/uL (0.00-0.03); Imm Gran Pct Auto 0.6 % (0.0-0.4); Lymphocytes Percent Auto 25.5 % (20-40); Mean Corpuscular Hemoglobin 26.2 pg (27.0-33.0); Mean Corpuscular Volume 81.9 fL (80.0-98.0); Mean Platelet Volume 10.1 fL (9.4-12.3); Monocytes Absolute Auto 0.7 X10*3/uL (0.1-1.2); Monocytes Percent Auto 5.6 % (2-11); Neutrophils Percent Auto 66.7 % (45-73); Platelet Count 444 X10*3/uL (160-400); Red Blood Count 4.43 X10*6/uL (4.20-5.50); Red Cell Distribution Width 14.3 % (11.0-16.0); White Blood Count 11.9 X10*3/uL (4.8-10.8)
[2024-05-01 17:54] LABS: Iron 48 mcg/dL (30-160); Percent Iron Saturation 12 % (15-50); Total Iron Binding Capacity 387 mcg/dL (228-428); Unsaturated Iron Binding 339 ug/dL
[2024-05-01 18:10] LABS: Ferritin 19 ng/mL (10-122)
== END 2024-05-01 14:42 | disposition home or self-care (01) ==
LOC: HO.WFDLDS 14:41
PROVIDERS: Visit Provider Physician Assistant
DX: D64.9 Anemia, unspecified (principal)
CPT/HCPCS: 36415; 82728; 83540; 85025

== ENCOUNTER 2024-05-17 13:39 | Outpatient (RCR) | payer OTHER, SELFPAY ==
--- NOTE | 2024-05-17 14:49 | MHC.PT.EP ---
[facility] [place] Office [place] Office [place] Office [address] [place] August [address] [phone] F: [phone] F: [phone] F: [phone] F: [phone] Physical Therapy Plan of Care Date of Evaluation: 05/17/24 Date of Surgery: Diagnosis: This is a 38 yo female presenting to skilled PT with a script for pain in L shoulder. Assessment: This is a 38 yo female presenting to skilled PT with a script for pain in L shoulder. Patient reporting ongoing shoulder pain for about 2 months now after lifting something heavy to her second floor apartment. Pain increases with extension, IR and abduction. Pain increases functionally with sleeping on her side, donning upper body clothing. Pain is a deep and stabbing/poke symptom. Pain is located at the upper trap but mainly at the anterior aspect of her shoulder. It is tender to touch. She has an order for an x-ray but has not had it done yet. Patient is not doing anything for pain management. Assessment reveals pain that ranges from up to a 8/10 at the worst. Patient demos decreased L shoulder and cervical ROM, strength of L shoulder and scapular stabilizers, TTP at the anterior GHJ joint line and UT and impaired posture with forward head and very rounded shoulders. Based on functional limitations, impaired QOL and pain tolerance patient is a good candidate for skilled PT 2x/wk for 4wks (will be doing 1x/wk due to work schedule). 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 Manual therapy to restore motion and function. Therapeutic exercise to improve strength and flexibility. Neuromuscular re-education for posture and balance. Therapeutic activities to return to functional activities of daily living. Electronically signed by: Olga Granaods PT Please sign and return to therapist. Thank you for your referral.
--- NOTE | 2024-06-18 14:46 | MHC.PT.DC ---
[facility] [place] Office [place] Office [place] Office [address] [facility] [phone] F: [phone] F: [phone] F: [phone] F: [phone] Physical Therapy Discharge Report Diagnosis: This is a 38 yo female presenting to skilled PT with a script for pain in L shoulder. Date of Surgery: Date of Evaluation: 05/17/24 Date of Discharge: 06/18/24 Treatments to Date: 1 Cancellations to Date: 0 No Shows to Date: 0 Discharge Status: Visit Non-compliance Discharge Summary: Patient did not return after initial eval. DC to HEP Electronically signed by: Olga Granados PT Please sign and return to therapist. Thank you for your referral.
== END 2024-06-18 14:46 | disposition home or self-care (01) ==
LOC: HO.PTCHIC 13:39
PROVIDERS: PCP Physician Assistant; Visit Provider Family Medicine
DX: M25.512 Pain in left shoulder (principal)
CPT/HCPCS: 97110; 97161

== ENCOUNTER 2024-05-20 13:37 | Outpatient (REF) | payer OTHER, SELFPAY | END 2024-05-20 13:38 | disposition home or self-care (01) | LOC: HO.US 13:37 | PROVIDERS: Absent Provider Physician Assistant; PCP Physician Assistant; Visit Provider Obstetrics & Gynecology | DX: N93.9 Abnormal uterine and vaginal bleeding, unspecified (principal); M25.512 Pain in left shoulder; M54.50 Low back pain, unspecified; M54.2 Cervicalgia | CPT/HCPCS: 72040; 72100; 73030; 76830; 76856 ==

== ENCOUNTER 2024-05-21 08:28 | Outpatient (AMB) | payer OTHER, SELFPAY ==
[2024-05-21 08:32] VITALS: BP 116/64; PULSE 75; BMI 47.2
--- NOTE | 2024-05-21 08:32 | MHC.OFFVIS ---
Vital Signs 05/21/24 08:32 Height 5 ft 1 in Weight 250 lb 0.067 oz BMI 47.2 BP 116/64 Blood Pressure Location Lt brachial Position Sitting Pulse 75 Intake Visit Reasons: psychiatric arnp/shahidacm/supraventricular tachycardia Corporate Safety Coordinator Required: Yes Corporate Safety Coordinator Name: veronica/[email or web address] [id number] Accompanied by: Self / Same As Patient Allergies No Known Allergies Allergy (Verified 05/01/24 13:53) Medication List - Last Reconciled 05/21/24 by Sam Oliveira MD bisoprolol fumarate 5 mg PO DAILY hydrochlorothiazide 12.5 mg PO DAILY montelukast 10 mg PO DAILY HPI Comments Details: Dipti is here for consultation regarding palpitations. Per patient, she apparently has had workup in the past in [place] for palpitations. In the PCP's note, there is mention of ventricular bigeminy/NSVT in her prior Holter monitors but we do not have those reports. Otherwise, patient states that she still gets some palpitations but mostly at nighttime. Nothing during the day. Overall, it is improved from before. No other complaints like angina or shortness of breath. No known coronary disease or myocardial infarction or cardiomyopathy. [facility] Medical History NESTOR III (cervical intraepithelial neoplasia grade III) with severe dysplasia Snoring PSVT (paroxysmal supraventricular tachycardia) Sinusitis Asthma Thyroid disease Palpitations HTN (hypertension) Surgical History S/P bilateral breast reduction H/O myomectomy Family History Mother Asthma HTN (hypertension) Thyroid disorder Father HTN (hypertension) Hypercholesteremia Cancer Social History (Updated 05/21/24 @ 08:38 by Nancy Orr CMA) Housing: Apartment Alcohol intake: current Alcohol intake frequency: holidays/special occasions only Patient Tobacco Use Status: Current someday Tobacco user Tobacco use type: Cigarette Cigarettes Per Day: 6 Years Smoked: 5 quit 08/2023 e-Cigarette/Vaping Use: Never Used service: No Current occupational status: employed 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 Current occupational exposures/hazards: No Cognitive needs: No Hearing needs: No Vision needs: No Female Reproductive History Menstrual Age of Menarche: 10 Review of Systems Const Denies chills, Denies daytime sleepiness, Denies fatigue, Denies fever(s), Denies poor appetite, Denies snoring, Denies stops breathing during sleep, Denies weakness, Denies weight gain and Denies weight loss Eyes Denies loss of vision ENT Denies dizziness and Denies hearing loss Card Denies chest pain, Denies irregular heart rhythm, Denies claudication, Denies leg edema, Denies lightheadedness, Denies palpitations, Denies dyspnea on exertion and Denies orthopnea Resp Denies cough, Denies excessive phlegm production, Denies dyspnea on exertion, Denies snoring and Denies wheezing GI Denies abdominal pain, Denies hematochezia, Denies change in bowel habits, Denies nausea and Denies vomiting Denies urinary frequency and Denies dysuria Musc Denies arthralgias, Denies muscle weakness, Denies numbness and Denies other Skin/Breast Denies nail changes and Denies rash Neuro Denies Abnormal speech present, Denies dizziness, Denies loss of vision, Denies memory loss, Denies numbness and Denies weakness Psych Denies depression and Denies memory loss Endo Denies fatigue and Denies palpitations Edwin/Lymph Denies easy bruising Aller/Immun Denies wheezing Physical Exam Vital Signs: Last Vital Signs Pulse 75 05/21/24 08:32 BP 116/64 05/21/24 08:32 BMI result Body Mass Index 47.2 Const General: comfortable and no acute distress Orientation/consciousness: patient oriented x3 HEENT Other: Unremarkable Head: Yes normal to inspection Neck Neck: Yes normal visual inspection Chest Chest palpation & inspection: normal inspection of the chest Resp Auscultation: clear to auscultation bilaterally Cardio Palpation: normal PMI Heart sounds: S1 normal heart sound present, S2 normal heart sound present, no gallops, no murmurs and no rubs GI Palpation (GI): Soft to palpation Back/Spine/Pelvis Other: unremarkable Skin General skin exam: no rashes or lesions noted Neuro General: patient oriented x3 Speech: No Abnormal speech present Extrem General: Yes normal to inspection Psych Mental Status: mental status grossly normal Office Procedures EKG Details: EKG with underlying sinus rhythm; 75/Min; nonspecific ST-T changes; PVCs. [id number], Complete Assessment & Plan Assessment & Plan (1) PVC (premature ventricular contraction): Code(s): I49.3 - Ventricular premature depolarization Category: Medical (2) PSVT (paroxysmal supraventricular tachycardia): Code(s): I47.10 - Supraventricular tachycardia, unspecified Category: Medical Plan Per PCP note, previous Holter and Berneche and apparently had shown ventricular bigeminy/SVT. We can get an echocardiogram/Holter for further assessment. She is already on beta-blockers and no changes with that. Orders: Orders CA echo transthoracic complete Today I49.3 - Ventricular premature depolarization ECG 7 day holter monitor Today I47.10 - Supraventricular tachycardia, unspecified, I49.3 - Ventricular premature depolarization, R00.2 - Palpitations Coding Level of Care Code New Pt Level 3 (33443) Diagnoses PVC (premature ventricular contraction) I49.3 PSVT (paroxysmal supraventricular tachycardia) I47.10 CPT Codes EKG - CPT: [id number], Complete ([id number])
== END 2024-05-21 09:05 | disposition home or self-care (01) ==
PROVIDERS: PCP Physician Assistant; Visit Provider Internal Medicine
DX: I49.3 Ventricular premature depolarization (principal); I47.10 Supraventricular tachycardia, unspecified
CPT/HCPCS: 93010; 99203

== ENCOUNTER → 2024-05-21 08:28 | Outpatient (BNVA) | payer BC, SELFPAY | PROVIDERS: PCP Physician Assistant; Visit Provider Internal Medicine | DX: I49.3 Ventricular premature depolarization (principal); I47.10 Supraventricular tachycardia, unspecified; Z79.899 Other long term (current) drug therapy | CPT/HCPCS: 93005 ==

== ENCOUNTER 2024-06-03 11:54 | Outpatient (REF) | payer OTHER, SELFPAY ==
--- NOTE | ~2024-06-03 | MM_ITS ---
EXAMINATION: MM SCREENING DIGITAL BREAST TOMOSYNTHESIS, BILATERAL CLINICAL INFORMATION: Screening. Asymptomatic. COMPARISON: Mammography: No prior mammograms are available for comparison. TECHNIQUE: Digital breast mammography with tomosynthesis is performed in both the craniocaudal and mediolateral oblique views along with computer-aided detection (CAD). FINDINGS: There are scattered areas of fibroglandular density (ACR BI-RADS breast composition Category b). Post surgical changes from bilateral reduction mammoplasty. There are no significant masses, abnormal calcifications, or other abnormalities. MM/MM tomosynthesis screening BI IMPRESSION: No mammographic evidence of malignancy. ASSESSMENT: BI-RADS BI-RADS 2 - Benign Findings RECOMMENDATION: Routine annual mammography screening. 1 year F/U This examination should not preclude the clinical evaluation of a suspicious palpable abnormality. This patient's information was entered into a reminder system with a target due date for their next mammogram. Electronically signed by: Nikki Larson DO 06/12/2024 02:18 PM SHOSHANA
== END 2024-06-03 11:55 | disposition home or self-care (01) ==
LOC: HO.MAMMO 11:54
PROVIDERS: PCP Physician Assistant; Visit Provider Obstetrics & Gynecology
DX: Z12.31 Encounter for screening mammogram for malignant neoplasm of breast (principal)
CPT/HCPCS: 77063; 77067

== ENCOUNTER → 2024-06-03 12:00 | Outpatient (BNV) | payer OTHER, SELFPAY | PROVIDERS: PCP Physician Assistant; Visit Provider Internal Medicine | DX: Z12.31 Encounter for screening mammogram for malignant neoplasm of breast (principal) | CPT/HCPCS: 77063; 77067 ==

== ENCOUNTER → 2024-06-21 08:04 | Outpatient (REF) | payer OTHER, SELFPAY ==
--- NOTE | 2024-06-21 08:07 | CA_ITS ---
Transthoracic Echocardiogram Patient (Last, First, Middle): Dipti Skinner, Gender: Female Date of : 1985 Age: 39 Procedure Date: 06/21/2024 Procedure Type: Transthoracic Echocardiogram Location: OP Height: 162. cm Weight: 112.49 kg BSA: 2.14 m2 Heart Rate: 66 bpm BP: 105 / 65 mmHg Assembler Dc Field Yoke: MAX Mora MD: Sam Oliveira MD E Business Manager: Victorino Combs MD Symptoms: I49.3 - Ventricular premature depolarization Study Quality: Fair ECG Rhythm: Frequent ventricular premature beats Conclusions: - Essentially normal study Findings Left Ventricle Normal left ventricular size, thickness, and systolic function. The visually estimated ejection fraction is between 55-60%. Spectral Doppler is indicative of a normal filling pattern. Peak GLS appears to be erroneous measurement Right Ventricle Normal right ventricular cavity size and systolic function. Atria Both atria are normal in size. Interatrial shunt cannot be excluded. Aortic Valve The aortic valve structure and function is likely normal. There is no aortic valve stenosis. There is no aortic valve regurgitation. Mitral Valve Normal mitral valve structure and function. There is trace mitral valve regurgitation. There is no mitral valve stenosis. Pulmonic Valve The pulmonic valve is likely normal. Tricuspid Valve Normal tricuspid valve structure. There is trace tricuspid valve regurgitation. The right ventricular systolic pressure is normal. The right ventricular systolic pressure is 21 mmHg. Normal right atrial pressure. There is no evidence of pulmonary hypertension. Great Vessels All visible segments of the aorta are normal in size. The pulmonary artery was not well visualized. Venous The inferior vena cava is normal in size and collapses greater than 50% with inspiration. Pericardium/Pleural There is no evidence of pericardial effusion. Prior Study Comparison No prior study available for comparison. Measurements 2D Linear Measurements IVSd: 0.78 0.6-0.9/0.6-1.0 cm LVIDd: 4.50 3.9-5.3/4.2-5.9 cm LVIDd Index: 2.10 2.4-3.2/2.2-3.1 cm/m2 LVIDs: 3.18 2.0-3.6 cm LVPWd: 0.86 0.7-1.1 cm LA Diam: 3.90 2.7-3.8/3.0-4.0 cm LAIDs Index: 1.82 1.5-2.3 cm/m2 LV Mass: 146.08 67-162/88-224 g LV Mass Index: 68.26 43-95/49-115 g/m2 LVOT Diam: 1.70 3.0+(-)1.3 cm 2D Systolic Function EF 4C: 61.80 >55% EF 2C: 55.60 >55% EF BiP: 57.60 >55% Mitral Valve MV Pk E: 1.16 MV PK A: 0.95 MV Decel Time: 239.00 E/A: 1.20 E'Lateral: 10.40 E'Medial: 7.94 E/E' Med: 14.60 E/E' Lat: 11.20 PHT: 70.00 MVA PHT: 3.14 Decel Knott: 4.85 Aortic Valve AoV Pk Steven: 1.47 AoV Mn Steven: 1.07 AoV VTI: 0.32 AoV Pk Grad: 9.00 Aov Mn Grad: 5.00 LIBAN Cont.VTI: 2.08 LVOT LVOT Pk Steven: 1.48 LVOT Mn Steven: 0.96 LVOT VTI: 0.29 LVOT Pk Grad: 9.00 LVOT Mn Grad: 4.00 LVOT Diam: 1.70 LVOT Area: 2.27 Diastolic Function MV Pk E: 1.16 MV Pk A: 0.95 E/A: 1.20 E'Medial: 7.94 E/E' Med: 14.60 E' Laterial: 10.40 E/E' Lat: 11.20 Right Ventricle TAPSE (mm): 24.40 Tricuspid Valve TR Pk Steven: 2.11 TR Pk Grad: 18.00 RA Press: 3.00 RVSP: 21.00 Great Vessels Aorta Sinus of Valsalva: 2.50 2.0-3.5 cm Ao Asc: 2.80 2.1-3.4 cm Pulmonary Valve PV Pk Steven: 1.07 Peak PV Grad: 5.00 Updated in Other Vendor System with Status of Final Victorino Combs MD electronically signed on 06/22/2024 3:31:34 PM with status of Final
== END ==
LOC: HO.CARD 08:04
PROVIDERS: PCP Physician Assistant; Visit Provider Internal Medicine
DX: R00.2 Palpitations (principal); I49.3 Ventricular premature depolarization; I47.10 Supraventricular tachycardia, unspecified
CPT/HCPCS: 93242; 93306

== ENCOUNTER → 2024-06-21 08:07 | Outpatient (BNV) | payer OTHER, SELFPAY | PROVIDERS: PCP Physician Assistant; Visit Provider Internal Medicine Cardiovascular Disease | DX: R94.31 Abnormal electrocardiogram [ECG] [EKG] (principal); R93.1 Abnormal findings on diagnostic imaging of heart and coronary circulation | CPT/HCPCS: 93306; 93356 ==

== ENCOUNTER 2024-08-19 09:08 | Outpatient (AMB) | payer OTHER, SELFPAY ==
[2024-08-19 09:10] VITALS: BMI 47.2
--- NOTE | 2024-08-19 09:10 | A.OFFVIS_ITS ---
Vital Signs 08/19/24 09:10 Height 5 ft 1 in Weight 250 lb BMI 47.2 Intake Visit Reasons: Ultrasound follow up Sewer Pipe Press Operator Required: Yes Sewer Pipe Press Operator Language: Senior Solutions Engineer Services: Sewer Pipe Press Operator Present (in person) Sewer Pipe Press Operator Name: Deepthi TAPIA Information Interpreted: non-clinical & clinical Accompanied by: Self / Same As Patient Allergies No Known Allergies Allergy (Verified 08/19/24 09:11) HPI Comments Details: Presenting for [facility] Medical History NESTOR III (cervical intraepithelial neoplasia grade III) with severe dysplasia Snoring PSVT (paroxysmal supraventricular tachycardia) Sinusitis Asthma Thyroid disease Palpitations HTN (hypertension) Surgical History S/P bilateral breast reduction H/O myomectomy Family History Mother Asthma HTN (hypertension) Thyroid disorder Father HTN (hypertension) Hypercholesteremia Cancer Social History Housing: Apartment Alcohol intake: current Alcohol intake frequency: holidays/special occasions only Patient Tobacco Use Status: Current someday Tobacco user Tobacco use type: Cigarette Cigarettes Per Day: 6 Years Smoked: 5 quit 08/2023 e-Cigarette/Vaping Use: Never Used service: No Current occupational status: employed 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 Current occupational exposures/hazards: No Cognitive needs: No Hearing needs: No Vision needs: No Female Reproductive History Menstrual Age of Menarche: 10 Review of Systems Const All systems reviewed & are unremarkable except as noted in HPI and below Reports as per HPI and Reports no additional complaints GI Reports no additional complaints Reports no additional complaints Physical Exam Vital Signs: BMI result Body Mass Index 47.2 Office Procedures Endometrial Biopsy Details: The patient was counseled regarding the indication and benefits of endometrial sampling to rule out endometrial pathology including not limited to endometrial hyperplasia or endometrial cancer and others; The alternatives (Either do nothing vs. hysteroscopy D&C) & the risks were discussed with the patient including but not limited: pain, uterine perforation, bleeding, infection, possible injury to bladder, bowel, ureter, possible need for blood transfusion with all its possible risks. The patient verbalized understanding all questions answered and signed consent. Urine test done in the office was negative The patient was placed into the dorsal lithotomy position; a speculum was inserted in the vagina. Using aseptic technique for the procedure, the cervix was cleansed with Betadine. The anterior lip of the cervix was grasped with a single tooth tenaculum. The uterus was sounded to 11 cm with a 4 mm Pipelle was used. Tissues samples were obtained and placed in formalin, in a patient labeled container and sent to the pathology department. At the end of the procedure, there was minimal bleeding noted The patient tolerated the procedure well and was discharged in good condition with the following instructions: Nothing in the vagina until the bleeding stops. No sex until the bleeding stops, to call if any of the following occurs: fever (>100.4), flu-like symptoms, abdominal pain, heavy bleeding, four smelling vaginal discharge. The patient was instructed to schedule a Follow up appointment in 2 weeks to discuss pathology results of the biopsy and treatment options. This note was generated with a voice recognition program. Some errors may have been overlooked during the review of this note. Sometimes these errors may affect the content or meaning of a given sentence. [id number] Biopsy Assessment & Plan Assessment & Plan (1) Abnormal uterine bleeding: Comment: History of myomectomy Code(s): N93.9 - Abnormal uterine and vaginal bleeding, unspecified Category: Medical Plan: EMB done, see procedure note Orders: Orders AMB Endometrial Biopsy Today N93.9 - Abnormal uterine and vaginal bleeding, unspecified Coding Level of Care Code Procedure Only Diagnoses Abnormal uterine bleeding N93.9 CPT Codes Endometrial Biopsy - CPT: 71407-Udaxppgrnlw Biopsy ([id number])
== END 2024-08-19 10:16 | disposition home or self-care (01) ==
LOC: HO.HWS 09:08
PROVIDERS: PCP Physician Assistant; Visit Provider Obstetrics & Gynecology
DX: N93.9 Abnormal uterine and vaginal bleeding, unspecified (principal); Z32.02 Encounter for pregnancy test, result negative
CPT/HCPCS: 58100

== ENCOUNTER 2024-08-19 09:08 | Outpatient (REF) | payer OTHER, SELFPAY | END 2024-08-19 09:09 | disposition home or self-care (01) | LOC: HO.LNP 09:08 | PROVIDERS: PCP Physician Assistant; Visit Provider Obstetrics & Gynecology | DX: N93.9 Abnormal uterine and vaginal bleeding, unspecified (principal) | CPT/HCPCS: 58100; 81025; 88305 ==

== ENCOUNTER 2024-08-22 15:06 | Outpatient (AMB) | payer OTHER, SELFPAY ==
[2024-08-22 15:25] VITALS: BP 100/62; PULSE 75; BMI 47.3
--- NOTE | 2024-08-22 15:25 | A.OFFVIS_ITS ---
Vital Signs 08/22/24 15:25 Height 5 ft 1 in Weight 250 lb 7.122 oz BMI 47.3 BP 100/62 Blood Pressure Location Lt brachial Position Sitting Pulse 75 Pulse Source Pulse Oximeter Intake Visit Reasons: 3 mth s/p holter/ bringing [place] records Bridge Toll Collector Required: No Allergies No Known Allergies Allergy (Verified 08/22/24 15:27) Medication List - Last Reconciled 08/22/24 by Genesis Johnson NP-C bisoprolol fumarate 5 mg PO DAILY hydrochlorothiazide 12.5 mg PO DAILY montelukast 10 mg PO DAILY HPI HPI 3 mth s/p holter/ bringing [place] records: Details: Dipti is a 39-year-old female past medical history of morbid obesity, hypertension, reported NSVT and PVCs, identified in the [place] who recently underwent an echocardiogram and Holter monitor and now presents for follow-up. Today she reports that she does get occasional brief heart palpitations. She has not felt any sustained rapid heartbeats. Her palpitations are much less than they used to be. Overall she is pleased with how she is feeling. She is taking her bisoprolol as directed. She drinks 1 caffeinated beverage per day. No chest discomfort at rest or with activity. No shortness of breath, lightheadedness, presyncope, syncope. She reports good activity tolerance. She recently started going to the gym and doing some light exercises. She is very interested in weight loss but tells me but is not sure she will ever undergo surgery. She is asking for a horticultural nursery assistant referral. [facility] Medical History NESTOR III (cervical intraepithelial neoplasia grade III) with severe dysplasia Snoring PSVT (paroxysmal supraventricular tachycardia) Sinusitis Asthma Thyroid disease Palpitations HTN (hypertension) Surgical History S/P bilateral breast reduction H/O myomectomy Family History Mother Asthma HTN (hypertension) Thyroid disorder Father HTN (hypertension) Hypercholesteremia Cancer Social History Housing: Apartment Alcohol intake: current Alcohol intake frequency: holidays/special occasions only Patient Tobacco Use Status: Current someday Tobacco user Tobacco use type: Cigarette Cigarettes Per Day: 6 Years Smoked: 5 quit 08/2023 e-Cigarette/Vaping Use: Never Used service: No Current occupational status: employed 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 Current occupational exposures/hazards: No Cognitive needs: No Hearing needs: No Vision needs: No Female Reproductive History Menstrual Age of Menarche: 10 Review of Systems Const All systems reviewed & are unremarkable except as noted in HPI and below ENT Denies dizziness Card Details: occassional palpitatons Denies chest pain, Denies chest pain at rest, Denies chest pain with activity, Denies rapid heart rate, Denies pedal edema, Denies edema, Denies leg edema, Denies lightheadedness, Denies palpitations, Denies dyspnea, Denies dyspnea on exertion and Denies orthopnea Resp Denies cough, Denies dyspnea and Denies dyspnea on exertion GI Denies hematochezia and Denies change in stool character Musc Denies abnormal gait, Denies limited range of motion, Denies muscle cramps, Denies muscle weakness, Denies numbness, Denies radiating pain into limb, Denies stiffness and Denies tingling Neuro Denies abnormal gait, Denies dizziness, Denies numbness and Denies tingling Endo Denies palpitations Physical Exam Vital Signs: Last Vital Signs Pulse 75 08/22/24 15:25 BP 100/62 08/22/24 15:25 BMI result Body Mass Index 47.3 Const General: cooperative, healthy appearing, comfortable and no acute distress Orientation/consciousness: patient oriented x3 Neck Neck: Yes normal visual inspection Resp Effort & Inspection: normal respiratory effort Auscultation: clear to auscultation bilaterally, no rales, no rhonchi and no wheezes Cardio Rate: regular rate Rhythm: regular rhythm Heart sounds: S1 normal heart sound present, S2 normal heart sound present, no murmurs and no rubs Neuro General: patient oriented x3 Extrem General: Yes normal to inspection, No no pedal edema and No calf tenderness Psych Appearance: grossly normal Mental Status: mental status grossly normal Speech and movement: Normal speech and movement present Assessment & Plan Assessment & Plan (1) PSVT (paroxysmal supraventricular tachycardia): Code(s): I47.10 - Supraventricular tachycardia, unspecified Category: Medical Plan: Reported history of SVT and PVCs. She did not bring records from the [facility] to the visit today. She has been taking bisoprolol 5 mg daily and says that this has improved her symptoms greatly. She will only notice occasional heart palpitations, a few times monthly. She does not have any sustained rapid heartbeats or lightheadedness, presyncope, syncope. She is currently pleased with how she is feeling. EKG done 05/21/2024 shows sinus rhythm with frequent PVCs, nonspecific T-wave abnormality, rate 75, QTC 442 milliseconds. An echocardiogram done 06/21/2024 showed normal study. Holter monitor done 06/21/2024 for 7 days shows sinus rhythm with average heart rate 81, frequent PVCs 1.7% of time, one 3 beat NSVT. Test results reviewed with her in detail. Offered reassurance that PVCs benign in a heart with normal EF. Continue current bisoprolol. Limit caffeine to 1 beverage daily. Maintain good hydration and get adequate rest. Continue physical activity as tolerated. Cardiology follow-up 1 year, sooner if needed. (2) PVC (premature ventricular contraction): Code(s): I49.3 - Ventricular premature depolarization Category: Medical Plan: As above (3) HTN (hypertension): Code(s): I10 - Essential (primary) hypertension Category: Medical Qualifiers: Hypertension type: primary hypertension Qualified Code(s): I10 - Essential (primary) hypertension Plan: History of hypertension. Currently well controlled with use of hydrochlorothiazide. No med changes made. (4) Morbid obesity with BMI of 45.0-49.9, adult: Code(s): E66.01 - Morbid (severe) obesity due to excess calories; Z68.42 - Body mass index [BMI] 45.0-49.9, adult Category: Medical Plan: Patient is morbidly obese. She says she is working on weight loss with exercise. She recently started going to the gym. She is requesting a horticultural nursery assistant consult. She said she previously was referred to the bariatric program however the waiting list is very long. She tells me she is not sure she would ever pursue surgery. Will refer to horticultural nursery assistant at this time. Will forward this note to her PCP for review. Plan Time spent on chart review, documentation, interview and assessment Orders: Referrals Crating And Moving Estimator Nutrition Referral E66.01 - Morbid (severe) obesity due to excess calories, I10 - Essential (primary) hypertension, Z68.42 - Body mass index [BMI] 45.0-49.9, adult Coding Level of Care Code Est Pt Level 3 (48265) Complex EM visit Add On G2211 Diagnoses PSVT (paroxysmal supraventricular tachycardia) I47.10 PVC (premature ventricular contraction) I49.3 Primary hypertension I10 Hypertension type: primary hypertension Morbid obesity with BMI of 45.0-49.9, adult E66.01; Z68.42
== END 2024-08-22 15:54 | disposition home or self-care (01) ==
LOC: HO.HCS 15:07
PROVIDERS: PCP Physician Assistant; Visit Provider Nurse Practitioner Family
DX: I47.10 Supraventricular tachycardia, unspecified (principal); I49.3 Ventricular premature depolarization; I10 Essential (primary) hypertension; E66.01 Morbid (severe) obesity due to excess calories; Z68.42 Body mass index [BMI] 45.0-49.9, adult
CPT/HCPCS: 99213

== ENCOUNTER → 2024-08-22 15:06 | Outpatient (BNVA) | payer OTHER, SELFPAY | PROVIDERS: PCP Physician Assistant; Visit Provider Nurse Practitioner Family ==

== ENCOUNTER 2024-09-12 11:11 | Outpatient (AMB) | payer OTHER, SELFPAY ==
[2024-09-12 11:14] VITALS: BMI 47.4
--- NOTE | 2024-09-12 11:14 | A.OFFVIS_ITS ---
VS Expanded 09/12/24 11:14 09/19/24 22:51 Height 5 ft 1 in 5 ft 1 in Weight 250 lb 14.177 oz 250 lb BMI 47.4 47.2 Intake Visit Reasons: Morbid (severe) obesity due to excess calories Allergies No Known Allergies Allergy (Verified 08/22/24 15:27) Nutrition Presentation Details: Pt presents for MNT for obesity Pt reports having gained over 50 lbs in a year's time Pt reports typically having 3 meals/day and has increased appetite in the evening physical activity: sedentary denies constipation/diarrhea denies vomiting Goal wt 180 lbs in 3 yrs time food frequency fruits: 0-1/d vex/wk dairy: 2/d starches >25/d fosj 0-1/wk etoh/smoking : denies physical activity : sedetanry BS Monitoring Most Recent Diabetes Results: No Data to Display VVE-Ffphuos-Ek.Jeor Equation Height: 5 ft 1 in Weight: 250 lb Resting Metabolic Rate: 1743.42 Calculated Activity Level: Sedentary Calories Needed to Maintain Weight: 2.10 Diagnosis Nutrition problem #1: excessive energy intake As related to (etiology) #1: diagnosis As evidenced by (sign/symptom) #1: knowledge deficit of diet COUNTS INCLUDE 234 BEDS AT THE [facility] Medical History NESTOR III (cervical intraepithelial neoplasia grade III) with severe dysplasia Snoring PSVT (paroxysmal supraventricular tachycardia) Sinusitis Asthma Thyroid disease Palpitations HTN (hypertension) Surgical History S/P bilateral breast reduction H/O myomectomy Family History Mother Asthma HTN (hypertension) Thyroid disorder Father HTN (hypertension) Hypercholesteremia Cancer Social History Housing: Apartment Alcohol intake: current Alcohol intake frequency: holidays/special occasions only Patient Tobacco Use Status: Current someday Tobacco user Tobacco use type: Cigarette Cigarettes Per Day: 6 Years Smoked: 5 quit 08/2023 e-Cigarette/Vaping Use: Never Used service: No Current occupational status: employed 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 Current occupational exposures/hazards: No Cognitive needs: No Hearing needs: No Vision needs: No Female Reproductive History Menstrual Age of Menarche: 10 Assessment & Plan Assessment & Plan (1) Morbid obesity with BMI of 45.0-49.9, adult: Code(s): E66.01 - Morbid (severe) obesity due to excess calories; Z68.42 - Body mass index [BMI] 45.0-49.9, adult Category: Medical Plan: Wt: 114 Kg ( 10/01 ) Est kcal needs as per MSJ: 2100 (40% carb, 30% protein/fat) Est fluid needs as per 25-30 ml/d: 3400 Est prot per day as per 1 g/kg bw: 114 Recommend fiber intake : 8-10 g per day and gradually increase to 25-28 g per day for women and 35-38 g for men or as tolerated Recommend sodium intake per day : less than 1500 mg less than 2000 mg Educated patient on: ( R = reviewed V = verbalizes understanding N/R = needs review N/A = not applicable * Food sources of carbohydrate, adequate serving sizes and its role in various health conditions: R V N/R * Differences between complex carbohydrates a simple carbohydrates, role of fiber in diet: R * Lean protein sources of foods: R * Differences between types of fats and role in diet (mono on saturated fat fatty acids, saturated fatty acids, trans fats): R V N/R * Food sources of sodium in salt and healthy modifications for heart health in kidney health: R V R/V * Vitamins and minerals: R V N/R * Healthy plate method concept: R V N/R * Physical activity: Benefits a precaution: R V N/R * Patient Instructions: Practice mindful eating keep a food record have a yogurt with nuts at bedtime snack Coding Level of Care Code Nutr Indiv Subseq (69961) Diagnoses Morbid obesity with BMI of 45.0-49.9, adult E66.01; Z68.42 Time Spent (min) 30
[2024-09-19 22:51] VITALS: BMI 47.2
== END 2024-09-12 11:47 | disposition home or self-care (01) ==
PROVIDERS: PCP Physician Assistant; Visit Provider Dietitian, Registered
DX: E66.01 Morbid (severe) obesity due to excess calories (principal); Z68.42 Body mass index [BMI] 45.0-49.9, adult

== ENCOUNTER → 2024-09-12 11:11 | Outpatient (BNVA) | payer OTHER, SELFPAY | PROVIDERS: PCP Physician Assistant; Visit Provider Dietitian, Registered | DX: E66.01 Morbid (severe) obesity due to excess calories (principal); Z68.42 Body mass index [BMI] 45.0-49.9, adult; Z71.3 Dietary counseling and surveillance | CPT/HCPCS: 97803 ==

== ENCOUNTER 2024-10-14 09:03 | Outpatient (AMB) | payer OTHER, SELFPAY ==
--- NOTE | 2024-10-14 09:07 | A.OFFVIS_ITS ---
Intake Visit Reasons: EMB Results Service Delivery Manager Required: Yes Service Delivery Manager Language: Dice Table Person Name: Joann [id number] Information Interpreted: non-clinical & clinical Allergies No Known Allergies Allergy (Verified 10/14/24 09:08) Is last menstrual period known: Yes Last menstrual period: 09/20/24 HPI Comments Details: The patient is presenting for follow-up to discuss the results of her abnormal uterine bleeding workup and options of treatment. The following workup was done.: H&H= 11.6/36.3 TSH, prolactin, hCG, GC and chlamydia were negative. Endometrial biopsy pathology showed the following: Endometrium, biopsy: Secretory endometrium; no atypia or hyperplasia identified Co testing was done in 06/02 was negative. Mammogram was BI-RADS 2 in 06/02 Pelvic ultrasound showed the following: IMPRESSION: Unremarkable pelvic ultrasound. [facility] Medical History NESTOR III (cervical intraepithelial neoplasia grade III) with severe dysplasia Snoring PSVT (paroxysmal supraventricular tachycardia) Sinusitis Asthma Thyroid disease Palpitations HTN (hypertension) Surgical History S/P bilateral breast reduction H/O myomectomy Family History Mother Asthma HTN (hypertension) Thyroid disorder Father HTN (hypertension) Hypercholesteremia Cancer Social History Housing: Apartment Alcohol intake: current Alcohol intake frequency: holidays/special occasions only Patient Tobacco Use Status: Current someday Tobacco user Tobacco use type: Cigarette Cigarettes Per Day: 6 Years Smoked: 5 quit 08/2023 e-Cigarette/Vaping Use: Never Used service: No Current occupational status: employed 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 Current occupational exposures/hazards: No Cognitive needs: No Hearing needs: No Vision needs: No Female Reproductive History Menstrual Age of Menarche: 10 Date of last menstrual period: 09/20/24 Review of Systems Const All systems reviewed & are unremarkable except as noted in HPI and below Reports as per HPI and Reports no additional complaints GI Reports no additional complaints Reports no additional complaints Assessment & Plan Assessment & Plan (1) Abnormal uterine bleeding: Comment: History of myomectomy Code(s): N93.9 - Abnormal uterine and vaginal bleeding, unspecified Category: Medical Plan: Discussed with the patient the results of the work up done and options of cecilia atment including Lysteda, control pills, Mirena IUD, endometrial ablation and hysterectomy. All pros, cons, risks and benefits if each option was discussed with the patient and the patient decided to go ahead with Mirena IUD so a more detailed discussion about it was conducted including mechanism of action, risks (uterine perforation, infection, injury to bladder, bowel, displacement, and others) benefits (hypo menorrhea, amenorrhea, ...). GC/CT were taken and were negative and the patient was instructed to schedule Mirena IUD insertion on day 1-5 of next cycle . All questions answered, the patient verbalized understanding Coding Level of Care Code Est Pt Level 3 (99383) Diagnoses Abnormal uterine bleeding N93.9
== END 2024-10-14 09:27 | disposition home or self-care (01) ==
LOC: HO.HWS 09:03
PROVIDERS: PCP Physician Assistant; Visit Provider Obstetrics & Gynecology
DX: N93.9 Abnormal uterine and vaginal bleeding, unspecified (principal)
CPT/HCPCS: 99213

== ENCOUNTER → 2024-10-14 09:03 | Outpatient (BNVA) | payer OTHER, SELFPAY | PROVIDERS: PCP Physician Assistant; Visit Provider Obstetrics & Gynecology ==

== ENCOUNTER 2024-11-13 15:14 | Outpatient (AMB) | payer OTHER, SELFPAY ==
--- NOTE | 2024-11-13 15:28 | A.OFFPC_ITS ---
Vital Signs 11/13/24 15:31 Height 5 ft 1 in Weight 250 lb 8 oz BMI 47.3 BP 116/82 Blood Pressure Location Rt brachial Position Sitting Respiration 14 Pulse 73 Pulse Source Pulse Oximeter Pulse Oximetry (%) 96 Oxygen Delivery Method Room Air Intake Visit Reasons: f/u on back pain/htn Intake Note: Follow up back pain and htn Photo Specialist Required: No Photo Specialist Name: softball umpire declined Allergies No Known Allergies Allergy (Verified 11/13/24 15:28) Medication List - Last Reconciled 11/13/24 by Deanne Fox PA-C bisoprolol fumarate 5 mg PO DAILY hydrochlorothiazide 12.5 mg PO DAILY montelukast 10 mg PO DAILY PRN Tobacco use date assessed: 11/13/24 Dental Screening Dental Screen Date: 11/13/24 Did you have a dental visit in the last 12 months?: Yes Did you have a dental problem in the last 6 months where you did not have access to dental care?: No Was dental information given to patient?: Patient has dentist HPI f/u on back pain/htn HPI Details Patient is a 39 year-old female who presents today for a follow up. She declines using a marketing services specialist today as she feels comfortable with Greek. She is able to reiterate this without any difficulty. She fell last week on the stairs and landed on both knees. She states that she missed the last 2 steps and fell forward onto the ground. No bruising or swelling No instability of the joint. States that she has been using cream and it is improving but she is still getting a lot of pain with standing. She denies hitting her head or her wrists. She says that she mostly landed on the knees and her belly. General: We tried to get Wegovy covered through her insurance but her insurance denied all weight loss drugs. She tells me that she is looking into going through a compound pharmacy. She wants to hold off on bariatric surgery if she can. PULM: Requests a refill on her montelukast. States that she uses this for her asthma prevention. Rarely needs to use her albuterol. CV: Has seen Cardiology. Blood pressure today in the office is 116/82. She is on bisoprolol 5 mg daily and hydrochlorothiazide 12.5 mg every morning. Glass Glazier: Following with gynecology for her abnormal uterine bleeding and abnormal Paps. Had neg pelvic u/s. Her last labs did show a mild anemia and she states t hat she is tired especially around her.. She is not on any iron supplements. Mammo: UTD [facility] Medical History NESTOR III (cervical intraepithelial neoplasia grade III) with severe dysplasia Snoring PSVT (paroxysmal supraventricular tachycardia) Sinusitis Asthma Thyroid disease Palpitations HTN (hypertension) Surgical History S/P bilateral breast reduction H/O myomectomy Family History Mother Asthma HTN (hypertension) Thyroid disorder Father HTN (hypertension) Hypercholesteremia Cancer Social History Housing: Apartment Alcohol intake: current Alcohol intake frequency: holidays/special occasions only Patient Tobacco Use Status: Former Tobacco user Tobacco use type: Cigarette Cigarettes Per Day: 6 Years Smoked: quit 5 months ago. 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 Current occupational exposures/hazards: No Cognitive needs: No Hearing needs: No Vision needs: No Female Reproductive History Menstrual Age of Menarche: 10 Questionnaire PHQ-9 Over the last 2 weeks, how often have you been bothered by any of the following problems? 1. Little interest or pleasure in doing things: not at all 2. Feeling down, depressed, or hopeless: not at all 3. Trouble falling or staying asleep, or sleeping too much: not at all 4. Feeling tired or having little energy: not at all 5. Poor appetite or overeating: not at all 6. Feeling bad about yourself - or that you are a failure or have let yourself or your family down: not at all 7. Trouble concentrating on things, such as reading the newspaper or watching television: not at all 8. Moving or speaking so slowly that other people could have noticed. Or the opposite - being so fidgety or restless that you have been moving around a lot more than usual: not at all 9. Thoughts that you would be better off or of hurting yourself in some way: not at all Total score: 0 Source: Developed by Drs. Ernesto Dasilva, Lesley Morris, Emmanuel Billy and colleagues, with an educational reese from [employer]. Thrive Questionnaire Date Thrive assessed: 05/01/24 I am a: Patient What is your living situation today?: I have a steady place to live Within the past 12 months, did the food you bought not last and you didn't have the money to get more?: Never true Within the past 12 months, did you worry whether your food would run out before you got money to buy more?: Never true Do you have trouble paying for medicines?: No Do you have trouble getting transportation to medical appointments?: No Do you have trouble paying your heating and electricity bill?: No Do you have trouble taking care of your child, family member or friend?: No Do you have trouble with day-to-day activities such as bathing, preparing meals, shopping, managing finances, etc.?: No Are you currently unemployed and looking for a job?: No Are you interested in more education?: No Please select the resources that you would like help with: None Currently or been in a relationship where the following occur: No concerns reported THRIVE Score: 0 AUDIT C Alcohol Use Questionnaire (AUDIT-C) 1. How often do you have a drink containing alcohol?: Monthly or less 2. How many drinks containing alcohol do you have on a typical day when you are drinking?: 1 or 2 3. How often do you have six or more drinks on one occasion?: Never Total Score: 1 JIMMY-7 AMB Questionnaire JIMMY-7 Date JIMMY - 7 assessed: 01/03/24 Feeling nervous, anxious, or on edge: 0 = Not at all Not being able to stop or control worryin = Not at all Worrying too much about different things: 0 = Not at all Trouble relaxin = Not at all Being so restless that it is hard to sit still: 0 = Not at all Becoming easily annoyed or irritable: 0 = Not at all Feeling afraid as if something awful might happen: 0 = Not at all Total JIMMY-7 score (0-4 normal; 5-9 mild; 10-14 moderate; 15-21 severe): 0 Source: Developed by Drs. Ernesto Dasilva, Lesley Morris, Emmanuel Billy and colleagues, with an educational reese from [employer]. Physical exam (Primary Care) Vital Signs: Last Vital Signs Pulse 73 11/13/24 15:31 Resp 14 11/13/24 15:31 BP 116/82 11/13/24 15:31 Pulse Ox 96 11/13/24 15:31 Oxygen Delivery Method Room Air 11/13/24 15:31 BMI result Body Mass Index 47.3 Tobacco/Smoking Status: Tobacco use Status Tobacco use date assessed 11/13/24 11/13/24 15:37 Patient Tobacco Use Status Former Tobacco user 11/13/24 15:37 Tobacco use type Cigarette 11/13/24 15:37 e-Cigarette/Vaping Use Never Used 11/13/24 15:37 PHQ-9: PHQ-9 Score PHQ-9: Total score 0 11/13/24 15:37 Thrive Assessment: Date of Thrive Assessment Date Thrive assessed 05/01/24 11/13/24 15:37 Currently or been in a relationship where the following occur: No concerns reported Const Orientation/consciousness: patient oriented x3 HENMT Ears: hearing grossly normal bilaterally Neck Thyroid: Thyroid normal Lymphatic: no lymphadenopathy noted Resp Auscultation: clear to auscultation bilaterally Cardio Rate: regular rate Rhythm: regular rhythm Heart sounds: S1 normal heart sound present and S2 normal heart sound present GI Inspection: Yes normal to inspection Palpation (GI): Soft to palpation and Other GI palpation findings present (nontender, no cva tenderness) Auscultation: normoactive bowel sounds Rectal Exam - Female: deferred Skin General skin exam: no rashes or lesions noted Neuro General: patient oriented x3, gait normal and no focal motor deficits Extrem Other: No ligamentous laxity. Negative drawer test General: Yes normal to inspection, Yes full ROM and Yes no clubbing, cyanosis or edema Results Reviewed Results Reviewed: US/US pelvic and transvaginal IMPRESSION: Unremarkable pelvic ultrasound. Coding Level of Care Code Est Pt Level 4 (47697) Complex EM visit Add On G2211 Diagnoses Snoring R06.83 Morbid obesity with BMI of 45.0-49.9, adult E66.01; Z68.42 Bilateral knee pain M25.561; M25.562 Primary hypertension I10 Hypertension type: primary hypertension Assessment & Plan Assessment & Plan (1) Snoring: Code(s): R06.83 - Snoring Category: Medical Plan: Referral to sleep Medicine. Inconclusive sleep study (2) Morbid obesity with BMI of 45.0-49.9, adult: Code(s): E66.01 - Morbid (severe) obesity due to excess calories; Z68.42 - Body mass inde x [BMI] 45.0-49.9, adult Category: Medical Plan: Following with a refrigerator mover. (3) Bilateral knee pain: Code(s): M25.561 - Pain in right knee; M25.562 - Pain in left knee Category: Medical Plan: X-rays ordered. (4) HTN (hypertension): Code(s): I10 - Essential (primary) hypertension Category: Medical Qualifiers: Hypertension type: primary hypertension Qualified Code(s): I10 - Essential (primary) hypertension Plan: WNL. Continue current plan Plan Labs ordered Orders: Orders XR knee RT 2V 11/13/24 M25.561 - Pain in right knee, M25.562 - Pain in left knee XR knee LT 2V 11/13/24 M25.561 - Pain in right knee, M25.562 - Pain in left knee Hemoglobin A1c 11/13/24 E66.01 - Morbid (severe) obesity due to excess calories, I10 - Essential (primary) hypertension, M25.561 - Pain in right knee, M25.562 - Pain in left knee, R06.83 - Snoring, R73.01 - Impaired fasting glucose, Z68.42 - Body mass index [BMI] 45.0-49.9, adult TSH reflex Free T4 11/13/24 E66.01 - Morbid (severe) obesity due to excess calories, I10 - Essential (primary) hypertension, M25.561 - Pain in right knee, M25.562 - Pain in left knee, R06.83 - Snoring, Z68.42 - Body mass index [BMI] 45.0-49.9, adult Complete Blood Count Auto Diff 11/13/24 E66.01 - Morbid (severe) obesity due to excess calories, I10 - Essential (primary) hypertension, M25.561 - Pain in right knee, M25.562 - Pain in left knee, R06.83 - Snoring, Z68.42 - Body mass index [BMI] 45.0-49.9, adult Comprehensive [place]. Panel Fast 11/13/24 E66.01 - Morbid (severe) obesity due to excess calories, I10 - Essential (primary) hypertension, M25.561 - Pain in rig ht knee, M25.562 - Pain in left knee, R06.83 - Snoring, Z68.42 - Body mass index [BMI] 45.0-49.9, adult Referrals Sleep Medicine Referral E66.01 - Morbid (severe) obesity due to excess calories, M25.561 - Pain in right knee, M25.562 - Pain in left knee, R06.83 - Snoring, Z68.42 - Body mass index [BMI] 45.0-49.9, adult Medications: Changed From montelukast 10 mg PO DAILY PRN To montelukast 10 mg PO DAILY 90 tabs 0RF
[2024-11-13 15:31] VITALS: BP 116/82; PULSE 73; RESP 14; O2SAT 96; BMI 47.3
== END 2024-11-13 15:55 | disposition home or self-care (01) ==
LOC: HO.HMCFM 15:15
PROVIDERS: PCP Physician Assistant; Visit Provider Physician Assistant
DX: R06.83 Snoring (principal); E66.01 Morbid (severe) obesity due to excess calories; Z68.42 Body mass index [BMI] 45.0-49.9, adult; M25.561 Pain in right knee; M25.562 Pain in left knee; I10 Essential (primary) hypertension

== ENCOUNTER → 2024-11-13 15:14 | Outpatient (BNVA) | payer OTHER, SELFPAY | PROVIDERS: PCP Physician Assistant; Visit Provider Physician Assistant ==

== ENCOUNTER 2024-11-20 14:11 | Outpatient (AMB) | payer OTHER, SELFPAY ==
[2024-11-20 14:15] VITALS: BMI 46.6
--- NOTE | 2024-11-20 14:15 | A.OFFVIS_ITS ---
VS Expanded 11/20/24 14:15 Height 5 ft 1 in Weight 246 lb 7.629 oz BMI 46.6 Intake Visit Reasons: Obesity Allergies No Known Allergies Allergy (Verified 11/13/24 15:28) Nutrition Presentation Details: Pt presents for MNT f/u for obesity Pt reports working on dietary modifications, reducing frequency of fast food meals and reducing sugars challenges - eating r/t boredom physical activity- daily life activities. BS Monitoring Most Recent Diabetes Results: No Data to Display PFSH Medical History NESTOR III (cervical intraepithelial neoplasia grade III) with severe dysplasia Snoring PSVT (paroxysmal supraventricular tachycardia) Sinusitis Asthma Thyroid disease Palpitations HTN (hypertension) Surgical History S/P bilateral breast reduction H/O myomectomy Family History Mother Asthma HTN (hypertension) Thyroid disorder Father HTN (hypertension) Hypercholesteremia Cancer Social History Housing: Apartment Alcohol intake: current Alcohol intake frequency: holidays/special occasions only Patient Tobacco Use Status: Former Tobacco user Tobacco use type: Cigarette Cigarettes Per Day: 6 Years Smoked: quit 5 months ago. 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 Current occupational exposures/hazards: No Cognitive needs: No Hearing needs: No Vision needs: No Female Reproductive History Menstrual Age of Menarche: 10 Assessment & Plan Assessment & Plan (1) Morbid obesity with BMI of 45.0-49.9, adult: Code(s): E66.01 - Morbid (severe) obesity due to excess calories; Z68.42 - Body mass index [BMI] 45.0-49.9, adult Category: Medical Plan: Wt: 114 Kg ( 10/01 ), 113kg (12/01) Est kcal needs as per MSJ: 2100 (40% carb, 30% protein/fat) Est fluid needs as per 25-30 ml/d: 3400 Est prot per day as per 1 g/kg bw: 114 Recommend fiber intake : 8-10 g per day and gradually increase to 25-28 g per day for women and 35-38 g for men or as tolerated Recommend sodium intake per day : less than 1500 mg less than 2000 mg Educated patient on: ( R = reviewed V = verbalizes understanding N/R = needs review N/A = not applicable * Food sources of carbohydrate, adequate serving sizes and its role in various health conditions: R V N/R * Differences between complex carbohydrates a simple carbohydrates, role of fiber in diet: R * Lean protein sources of foods: R * Differences between types of fats and role in diet (mono on saturated fat fatty acids, saturated fatty acids, trans fats): R * Food sources of sodium in salt and healthy modifications for heart health in kidney health: R V R/V * Vitamins and minerals: R V N/R * Healthy plate method concept: R V N/R * Physical activity: Benefits a precaution: R V N/R * Patient Instructions: Work on reducing on saturated fats (in coffee/butter/creams/sauces, amount of cheese, visible fat, fried/prefried foods ) Work on reducing portion sizes in evening, use smaller plate Coding Level of Care Code Nutr Indiv Subseq (66357) Diagnoses Morbid obesity with BMI of 45.0-49.9, adult E66.01; Z68.42 Time Spent (min) 20
== END 2024-11-20 14:57 | disposition home or self-care (01) ==
LOC: HO.ENCR 14:11
PROVIDERS: PCP Physician Assistant; Visit Provider Dietitian, Registered
DX: E66.01 Morbid (severe) obesity due to excess calories (principal); Z68.42 Body mass index [BMI] 45.0-49.9, adult

== ENCOUNTER → 2024-11-20 14:11 | Outpatient (BNVA) | payer OTHER, SELFPAY | PROVIDERS: PCP Physician Assistant; Visit Provider Dietitian, Registered | DX: E66.01 Morbid (severe) obesity due to excess calories (principal); Z68.42 Body mass index [BMI] 45.0-49.9, adult; Z71.3 Dietary counseling and surveillance | CPT/HCPCS: 97803 ==

== ENCOUNTER 2024-11-28 11:42 | Outpatient (AMB) | payer OTHER, SELFPAY ==
[2024-11-28 11:58] VITALS: BMI 46.5
--- NOTE | 2024-11-28 11:58 | MHC.OFFVIS ---
Vital Signs 11/28/24 11:58 Height 5 ft 1 in Weight 246 lb BMI 46.5 Intake Visit Reasons: Mirena insertion/vulva biopsy Adapted Physical Education Specialist Required: Yes Adapted Physical Education Specialist Language: Commercial Litigation Associate Services: Adapted Physical Education Specialist Present (in person) Adapted Physical Education Specialist Name: Deepthi TAPIA Information Interpreted: non-clinical & clinical Mangle Operator Garments: Mangle Operator Garments Present (Deepthi TAPIA) Accompanied by: Self / Same As Patient Allergies No Known Allergies Allergy (Verified 11/28/24 11:59) Is last menstrual period known: Yes Last menstrual period: 11/25/24 HPI Comments Details: Presenting for IUD insertion, complaining of 2 skin tags 1 on the left buttock and 1 on her mons pubis causing irritation underwear and in addition to left periareolar skin tag PFSH Medical History NESTOR III (cervical intraepithelial neoplasia grade III) with severe dysplasia Snoring PSVT (paroxysmal supraventricular tachycardia) Sinusitis Asthma Thyroid disease Palpitations HTN (hypertension) Surgical History S/P bilateral breast reduction H/O myomectomy Family History Mother Asthma HTN (hypertension) Thyroid disorder Father HTN (hypertension) Hypercholesteremia Cancer Social History Housing: Apartment Alcohol intake: current Alcohol intake frequency: holidays/special occasions only Patient Tobacco Use Status: Former Tobacco user Tobacco use type: Cigarette Cigarettes Per Day: 6 Years Smoked: quit 5 months ago. 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 Current occupational exposures/hazards: No Cognitive needs: No Hearing needs: No Vision needs: No Female Reproductive History Menstrual Age of Menarche: 10 Date of last menstrual period: 11/25/24 Review of Systems Const All systems reviewed & are unremarkable except as noted in HPI and below Physical Exam Vital Signs: BMI result Body Mass Index 46.5 Chest Other: Left periareolar skin tag General: Yes no CVA tenderness External Female Exam: No normal external appearance (Skin lesion months pubis and left buttock) and normal appearance of the urethra Speculum Exam - Vagina: normal appearance of the vagina, normal palpation, no lesions and no masses Speculum Exam - Cervix: normal appearance of the cervix, normal palpation, no lesions, no masses and nontender Bimanual exam- vagina & uterus: normal bimanual exam, normal palpation, uterine size normal, normal palpation, uterine shape normal, No Cervical tenderness present and non-tender Bimanual Exam- Adnexa, other: normal adnexae Back/Spine/Pelvis Back: no CVA tenderness Office Procedures POULTRY HATCHERY LABORER Biopsy Before the procedure was started d/w patient the procedure, alternatives ( do nothing, medical rx), & all the risks associated with the procedure ( bleeding , infection, vulvar scarring, painful intercourse, injury to vessels, possible need for transfusion with all its risks) then patient signed the consent. Preop dx: Mons pubis and left buttock lesion Op: Mons pubis and left buttock lesionn excision Post op: Same Anesthesia: Lidocaine 1% 3cc used Procedure: Using betadine the area was scrubbed and draped in the usual manner.5 cc of lidocaine was used for anesthesia at the Mons pubis and left buttock lesion area ; using scissors and pickup the Mons pubis and left buttock lesion were excised, 4.0 Vicryl was used to approximate the edges. Pressure was used for hemostasis. The patient tolerated the procedure well. Discharge Instructions: The patient was instructed to schedule an appointment in 2 weeks for follow-up and to call if temp>100.4, area of the biopsy redness or pain, nausea/vomiting. This note was generated with a voice recognition program. Some errors may have been overlooked during the review of this note. Sometimes these errors may affect the content or meaning of a given sentence. 49118-Nevtgc of Vulva/Perineum 68233-Kfmetk of Vulva/Perineum, additional site Procedure code (CPT) selection complete IUD Insert/Removal Details Details: The patient is presenting for Mirena IUD insertion Urine test was done in the office and was negative; All the contraindications were excluded. The following possible complications were discussed with the patient: Intrauterine , Ectopic , Sepsis, Pelvic Infection, Irregular Bleeding and Amenorrhea, Perforation, Expulsion, Ovarian Cysts, Breast Cancer, The following adverse effects were discussed with the patient: alteration of menstrual bleeding pattern, including: unscheduled uterine bleeding decreased uterine bleeding increased scheduled uterine bleeding female genital tract bleeding ,amenorrhea , genital discharge , vulvovaginitis , breast pain , benign ovarian cyst and associated complications , dysmenorrhea , Gastrointestinal disorders abdominal/pelvic pain, headache/migraine , back pain , acne , depression Alternative options were discussed with the patient including but not limited: control pills, patch, NuvaRing, Depo-medroxyprogesterone acetate, Nexplanon, copper IUD, sterilization, vasectomy, others The procedure was explained in detail to patient , at the end patient signed the informed consent obtained. A no touch technique was used throughout the procedure. A speculum was placed into vagina and cervix was cleaned with betadine). A tenaculum was placed. A plastic sound was advanced through the external and internal os until it reached the fundus of the uterus, the depth was 8 cm. The sound was then withdrawn. The IUD was loaded in a sterile manner and advanced into position. The string was visualized and cut to 3 cm. Tenaculum site hemostatic. All instruments removed from vagina. Patient tolerated the procedure well. NO complications were noted. Patient was instructed to call for fever over 100.4, significant pain unrelieved by Motrin, IUD expulsion, heavy bleeding, or abnormal discharge. In addition, the following clinical considerations were discussed with the patient to call for removal: A stroke or heart attack ,Very severe or migraine headaches ,Unexplained fever ,Yellowing of the skin or whites of the eyes, as these may be signs of serious liver problems , or suspected , Pelvic pain or pain during sex ,HIV positive seroconversion in herself or her partner , Possible exposure to sexually transmitted infections Unusual vaginal discharge or genital sores , severe vaginal bleeding or bleeding that lasts a long time, or if she misses a menstrual period, Inability to feel Mirena's threads Counseled the patient that the IUD does not protect against STI's, recommended use of condoms for the first 7 days post insertion and explained to the patient that condoms are recommended for patients at risk for sexually transmitted infections. Informed the patient that Mirena IUD is FDA approved for 8 years for contraception for 5 years for the treatment of heavy menses Instructed the patient to schedule a Follow up appointment in 4 to 6 weeks following insertion. This note was generated with a voice recognition program. Some errors may have been overlooked during the review of this note. Sometimes these errors may affect the content or meaning of a given sentence. 58361-STS Insertion Procedure code (CPT) selection complete Office Meds Mirena 21 mcg/24 hr (up to 8 years) 52 mg intrauterine device Performing Provider: Moises Garnett MD Performing Location: [facility] Documented (not given) by: Moises Garnett MD on 11/28/24 12:27 Dose Route Admin Location Dispensed Lot Number Expiration Date [facility] [place] Tender 1 device intrauterine ea Results AMB Test Urine AMB Test Urine Negative Last Edit by Deepthi Staples CMA on 11/28/24 12:00 Assessment & Plan Assessment & Plan (1) Abnormal uterine bleeding: Comment: History of myomectomy Code(s): N93.9 - Abnormal uterine and vaginal bleeding, unspecified Category: Medical Plan: GC/CT taken, urine test done in the office was negative. IUD inserted, see procedure note (2) Lesion of female perineum: Comment: One in months pubis and 2nd left buttocks Code(s): N90.9 - Noninflammatory disorder of vulva and perineum, unspecified Category: Medical Plan: Skin lesions removal done, see procedure note (3) Skin tag: Comment: Left periareolar lesion Code(s): L91.8 - Other hypertrophic disorders of the skin Category: Medical Plan: Will refer to General surgery for further further management Orders: Orders AMB IUD Insertion/Removal - Practice Supplied Today N93.9 - Abnormal uterine and vaginal bleeding, unspecified AMB HCG Urine Test Today Z32.02 - Encounter for test, result negative AMB POULTRY HATCHERY LABORER Biopsy Today N90.9 - Noninflammatory disorder of vulva and perineum, unspecified Referrals General Surgery Referral L91.8 - Other hypertrophic disorders of the skin Medications: New Mirena (levonorgestrel) 1 device intrauterine ONCE 1 ea 0RF AUB NS N93.9 - Abnormal uterine and vaginal bleeding, unspecified Coding Level of Care Code Est Pt Level 3 (06139) Procedure Only Diagnoses Abnormal uterine bleeding N93.9 Lesion of female perineum N90.9 Skin tag L91.8 CPT Codes POULTRY HATCHERY LABORER Biopsy - CPT: 67377-Rxobxp of Vulva/Perineum ([id number]) POULTRY HATCHERY LABORER Biopsy - CPT: 22214-Cbdklx of Vulva/Perineum, additional site ([id number]) Details - CPT: 45231-WAU Insertion ([id number])
== END 2024-11-28 12:26 | disposition home or self-care (01) ==
LOC: HO.HWS 11:42
PROVIDERS: PCP Physician Assistant; Visit Provider Obstetrics & Gynecology
DX: Z30.430 Encounter for insertion of intrauterine contraceptive device (principal); N93.9 Abnormal uterine and vaginal bleeding, unspecified; N90.9 Noninflammatory disorder of vulva and perineum, unspecified; L91.8 Other hypertrophic disorders of the skin; Z32.02 Encounter for pregnancy test, result negative
CPT/HCPCS: 56605; 56606; 58300

== ENCOUNTER 2024-11-28 11:42 | Outpatient (REF) | payer OTHER, SELFPAY ==
--- NOTE | ~2024-11-28 | XR_ITS ---
CLINICAL HISTORY: M25.561 - Pain in right and left knee 3 view bilateral knee Comparison: None Findings: Bones intact. No dislocations. No significant arthritic change or erosions. No joint effusion. No radiopaque foreign body. IMPRESSION: 1. No acute findings. This document has been electronically signed by: Julio Foy MD on 11/29/2024 14:46:01
== END 2024-11-28 11:43 | disposition home or self-care (01) ==
LOC: HO.XRAY 11:42
PROVIDERS: Absent Provider Physician Assistant; PCP Physician Assistant; Visit Provider Obstetrics & Gynecology
DX: Z30.430 Encounter for insertion of intrauterine contraceptive device (principal); N93.9 Abnormal uterine and vaginal bleeding, unspecified; N90.9 Noninflammatory disorder of vulva and perineum, unspecified
CPT/HCPCS: 56605; 56606; 58300; 73560; 81025; J7298

== ENCOUNTER 2024-11-28 12:20 | Outpatient (REF) | payer OTHER, SELFPAY ==
[2024-11-28 16:21] LABS: CT PCR NOT DETECTED (Not Detect.); NG PCR NOT DETECTED (Not Detect.)
== END 2024-11-28 12:21 | disposition home or self-care (01) ==
LOC: HO.LNP 12:20
PROVIDERS: Visit Provider Obstetrics & Gynecology
DX: Z30.430 Encounter for insertion of intrauterine contraceptive device (principal); N90.9 Noninflammatory disorder of vulva and perineum, unspecified
CPT/HCPCS: 87491; 87591; 88305

== ENCOUNTER → 2024-11-28 12:38 | Outpatient (BNV) | payer OTHER, SELFPAY | PROVIDERS: Absent Provider Physician Assistant; PCP Physician Assistant; Visit Provider Specialist | DX: M25.562 Pain in left knee (principal); M25.561 Pain in right knee | CPT/HCPCS: 73560 ==

== ENCOUNTER 2024-12-10 14:37 | Outpatient (AMB) | payer OTHER, SELFPAY ==
--- NOTE | 2024-12-10 14:40 | A.OFFVIS_ITS ---
Vital Signs 12/10/24 14:43 Height 5 ft 1 in Weight 246 lb BMI 46.5 Intake Visit Reasons: open wound from biopsy C Wpf Developer Required: Yes C Wpf Developer Language: Metal Numerical Tool Programmer Services: C Wpf Developer Present (in person) C Wpf Developer Name: Deepthi TAPIA Information Interpreted: non-clinical & clinical Fixture Fabricator Repairer: Fixture Fabricator Repairer Present (Deepthi TAPIA) Accompanied by: Self / Same As Patient Allergies No Known Allergies Allergy (Verified 12/10/24 14:44) HPI Comments Details: Presenting complaining of open of the wound of the mons pubis excisional biopsy. Pathology showed the following: A. Skin, left buttock lesion, biopsy: Benign intradermal nevus. B. Skin, mons pubic lesion, biopsy: Seborrheic keratosis [facility] Medical History NESTOR III (cervical intraepithelial neoplasia grade III) with severe dysplasia Snoring PSVT (paroxysmal supraventricular tachycardia) Sinusitis Asthma Thyroid disease Palpitations HTN (hypertension) Surgical History S/P bilateral breast reduction H/O myomectomy Family History Mother Asthma HTN (hypertension) Thyroid disorder Father HTN (hypertension) Hypercholesteremia Cancer Social History Housing: Apartment Alcohol intake: current Alcohol intake frequency: holidays/special occasions only Patient Tobacco Use Status: Former Tobacco user Tobacco use type: Cigarette Cigarettes Per Day: 6 Years Smoked: quit 5 months ago. 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 Current occupational exposures/hazards: No Cognitive needs: No Hearing needs: No Vision needs: No Female Reproductive History Menstrual Age of Menarche: 10 Physical Exam Skin Other: Months pubis open incision with no erythema no discharge evidence of infection Assessment & Plan Assessment & Plan (1) Wound, open: Code(s): T14.8XXA - Other injury of unspecified body region, initial encounter Category: Medical Plan: Recommended wet and dry gauze changed twice a day. Discussed with the patient signs symptoms of infection, instructions given the patient to call in case of redness, greenish discharge, fever above 100.4, worsening of the pain or non closure within 1-2 weeks. Discussed with the patient the results the pathology, the patient verbalized understanding. All questions answered, the patient verbalized Coding Level of Care Code Est Pt Level 3 (27642) Diagnoses Wound, open T14.8XXA
[2024-12-10 14:43] VITALS: BMI 46.5
== END 2024-12-10 15:57 | disposition home or self-care (01) ==
LOC: HO.HWS 14:37
PROVIDERS: PCP Physician Assistant; Visit Provider Obstetrics & Gynecology
DX: T14.8XXA Other injury of unspecified body region, initial encounter (principal)
CPT/HCPCS: 99213

== ENCOUNTER → 2024-12-10 14:37 | Outpatient (BNVA) | payer OTHER, SELFPAY | PROVIDERS: PCP Physician Assistant; Visit Provider Obstetrics & Gynecology ==

== ENCOUNTER 2025-02-11 09:35 | Outpatient (REF) | payer OTHER, SELFPAY ==
[2025-02-11 11:14] LABS: MANUAL DIFF FLAG NO
[2025-02-11 11:31] LABS: Hematocrit 38.7 % (37.0-47.0); Hemoglobin 12.4 g/dl (12.0-16.0); Imm Gran Abs Auto 0.03 X10*3/uL (0.00-0.03); Imm Gran Pct Auto 0.4 % (0.0-0.4); Lymphocytes Absolute Auto 2.8 X10*3/uL (1.2-4.9); Mean Corpuscular HGB Conc 32.0 g/dl (31.0-35.0); Mean Corpuscular Hemoglobin 26.4 pg (27.0-33.0); Mean Corpuscular Volume 82.5 fL (80.0-98.0); NRBC Abs Auto 0.000 X10*3/uL (0.0-0.012); NRBC Pct Auto 0.0 /100WBC (0.0-0.2); Platelet Count 420 X10*3/uL (160-400); Red Blood Count 4.69 X10*6/uL (4.20-5.50); White Blood Count 8.4 X10*3/uL (4.8-10.8)
[2025-02-11 11:44] LABS: Hemoglobin A1C 141.0648 umol/L; Total Hemoglobin (HGBA1C) 3302.9840 umol/L
[2025-02-11 12:06] LABS: Alanine Aminotransferase 19 U/L (0-31); Albumin Level 3.8 g/dL (3.5-5.0); Alkaline Phosphatase 97 U/L (39-117); Anion Gap 11 (12-20); Aspartate Amino Transferase 22 U/L (5-31); Blood Urea Nitrogen 15 mg/dL (9-16); Calcium 9.0 mg/dL (8.4-10.2); Carbon Dioxide 26 mmol/L (22-29); Chloride 106 mmol/L (96-108); Estimated Glomerular Filt Rate > 60; Potassium 3.9 mmol/L (3.3-5.1); Sodium 139 mmol/L (135-145); Total Protein 7.2 g/dL (6.5-8.0)
== END 2025-02-11 09:36 | disposition home or self-care (01) ==
LOC: HO.WFDLDS 09:35
PROVIDERS: Visit Provider Physician Assistant
DX: E66.01 Morbid (severe) obesity due to excess calories (principal); R73.01 Impaired fasting glucose; R06.83 Snoring; M25.561 Pain in right knee; M25.562 Pain in left knee; I10 Essential (primary) hypertension; Z68.42 Body mass index [BMI] 45.0-49.9, adult
CPT/HCPCS: 36415; 80053; 83036; 84443; 85025

== ENCOUNTER 2025-02-12 14:14 | Outpatient (AMB) | payer OTHER, SELFPAY ==
--- NOTE | 2025-02-12 14:27 | MHC.PC.OV ---
Vital Signs 02/12/25 14:30 Height 5 ft 1 in Weight 251 lb 6 oz BMI 47.5 BP 112/76 Blood Pressure Location Lt brachial Position Sitting Respiration 14 Pulse 65 Pulse Source Pulse Oximeter Temp 98.8 F Temp Source Oral Pulse Oximetry (%) 97 Oxygen Delivery Method Room Air Intake Visit Reasons: labs and bp Intake Note: Lab and blood pressure follow up Body Shop Supervisor Required: No Body Shop Supervisor Name: intrepter declined Allergies No Known Allergies Allergy (Verified 02/12/25 14:29) Medication List - Last Reconciled 02/12/25 by Deanne Fox PA-C bisoprolol fumarate 5 mg PO DAILY hydrochlorothiazide 12.5 mg PO DAILY montelukast 10 mg PO DAILY PRN Tobacco use date assessed: 02/12/25 Dental Screening Dental Screen Date: 11/13/24 HPI labs and bp HPI Details Patient is a 39 year-old female who presents today for a follow up. Msk: She states she is still feeling bilateral knee pain. She states it has been a few months now and it does not feel like she is getting better. She wants to exercise but can't because the following day she develops knee pain and stiffness. 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 She does complain today of bilateral heel pain that is worse in the morning and with walking. Is seem to have recently started from her increased exercise efforts. She has been trying to wear supportive footwear massage her feet. At night she has also noticed severe burning of her feet. She states that it is to the point where she has to put them in cold water at night and she sleep with a fan on her feet. She denies any weakness or numbness. No visible differences to her feet. This has been going on for the last few weeks. She does have chronic low back pain in the past states that she has had multiple lumbar injections but never felt any real improvement if anything, felt worse with her back. She would like to see a specialist regarding her back. No radiation down the legs but she has constant discomfort across her low back. Endo: Recent labs came back showing prediabetes. She is following with a biological technician. She says that she knows that she needs to be better with her diet. PULM: Requests a refill on her montelukast. States that she uses this for her asthma prevention. Rarely needs to use her albuterol. CV: Has seen Cardiology. Blood pressure today in the office is 112/76. She is on bisoprolol 5 mg daily and hydrochlorothiazide 12.5 mg every morning. Derm: States that she has a new mole on her right lower leg that is proximally 3 mm x 3 mm and states that it has been there for the last month or so and she would like to see a qc analyst. Circulation Director: Following with gynecology for her abnormal uterine bleeding and abnormal Paps. Had neg pelvic u/s. Mammo: WVD [facility] Medical History NESTOR III (cervical intraepithelial neoplasia grade III) with severe dysplasia Snoring PSVT (paroxysmal supraventricular tachycardia) Sinusitis Asthma Thyroid disease Palpitations HTN (hypertension) Surgical History S/P bilateral breast reduction H/O myomectomy Family History Mother Asthma HTN (hypertension) Thyroid disorder Father HTN (hypertension) Hypercholesteremia Cancer Social History Housing: Apartment Alcohol intake: current Alcohol intake frequency: holidays/special occasions only Patient Tobacco Use Status: Former Tobacco user Tobacco use type: Cigarette Cigarettes Per Day: 6 Years Smoked: quit 5 months ago. 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 Current occupational exposures/hazards: No Cognitive needs: No Hearing needs: No Vision needs: No Female Reproductive History Menstrual Age of Menarche: 10 Questionnaire Thrive Questionnaire Date Thrive assessed: 11/13/24 I am a: Patient What is your living situation today?: I have a steady place to live Within the past 12 months, did the food you bought not last and you didn't have the money to get more?: Never true Within the past 12 months, did you worry whether your food would run out before you got money to buy more?: Never true Do you have trouble paying for medicines?: No Do you have trouble getting transportation to medical appointments?: No Do you have trouble paying your heating and electricity bill?: No Do you have trouble taking care of your child, family member or friend?: No Do you have trouble with day-to-day activities such as bathing, preparing meals, shopping, managing finances, etc.?: No Are you currently unemployed and looking for a job?: No Are you interested in more education?: No Please select the resources that you would like help with: None Currently or been in a relationship where the following occur: No concerns reported THRIVE Score: 0 JIMMY-7 AMB Questionnaire JIMMY-7 Date JIMMY - 7 assessed: 01/03/24 Source: Developed by Drs. Ernesto Dasilva, Lesley Morris, Emmanuel Billy and colleagues, with an educational reese from [employer]. Physical exam (Primary Care) Vital Signs: Last Vital Signs Temp 98.8 F 02/12/25 14:30 Pulse 65 02/12/25 14:30 Resp 14 02/12/25 14:30 BP 112/76 02/12/25 14:30 Pulse Ox 97 02/12/25 14:30 Oxygen Delivery Method Room Air 02/12/25 14:30 BMI result Body Mass Index 47.5 Tobacco/Smoking Status: Tobacco use Status Tobacco use date assessed 02/12/25 02/12/25 14:33 Patient Tobacco Use Status Former Tobacco user 02/12/25 14:28 Tobacco use type Cigarette 02/12/25 14:28 e-Cigarette/Vaping Use Never Used 02/12/25 14:28 Thrive Assessment: Date of Thrive Assessment Date Thrive assessed 11/13/24 02/12/25 14:28 Currently or been in a relationship where the following occur: No concerns reported Const Orientation/consciousness: patient oriented x3 HENMT Ears: hearing grossly normal bilaterally Neck Thyroid: Thyroid normal Lymphatic: no lymphadenopathy noted Resp Auscultation: clear to auscultation bilaterally Cardio Rate: regular rate Rhythm: regular rhythm Heart sounds: S1 normal heart sound present and S2 normal heart sound present GI Inspection: Yes normal to inspection Palpation (GI): Soft to palpation and Other GI palpation findings present (nontender, no cva tenderness) Auscultation: normoactive bowel sounds Rectal Exam - Female: deferred Skin General skin exam: no rashes or lesions noted Neuro General: patient oriented x3, gait normal and no focal motor deficits Extrem Other: DP pulses 2+ bilaterally. Sensation intact. Strength intact and 5/5 bilaterally. There is tenderness to palpation on the plantar aspect of the bilateral heels. General: Yes normal to inspection, Yes full ROM and Yes capillary refill normal Results Reviewed Results Reviewed: Laboratory Tests 01/04/24 02/11/25 09:38 09:36 WBC 8.4 RBC 4.69 Hgb 12.4 Hct 38.7 Plt Count 420 H Sodium 139 Potassium 3.9 Chloride 106 Carbon Dioxide 26 Anion Gap 11 L BUN 15 Creatinine 0.92 Estimated GFR > 60 Fasting Glucose 94 Hemoglobin A1c % 6.1 H Calcium 9.0 AST 22 ALT 19 Triglycerides 83 Cholesterol 204 H LDL Cholesterol, Calc 124 H HDL Cholesterol 64 TSH 1.86 Coding Level of Care Code Est Pt Level 4 (91611) Complex EM visit Add On G2211 Diagnoses Bilateral knee pain M25.561; M25.562 Lumbar pain M54.50 Paresthesia of both feet R20.2 Prediabetes R73.03 Bilateral foot pain M79.671; M79.672 Skin lesion of right leg L98.9 Assessment & Plan Assessment & Plan (1) Bilateral knee pain: Code(s): M25.561 - Pain in right knee; M25.562 - Pain in left knee Category: Medical Plan: Referral to ortho (2) Lumbar pain: Code(s): M54.50 - Low back pain, unspecified Category: Medical Plan: X-ray ordered. Referral to physiatry (3) Paresthesia of both feet: Code(s): R20.2 - Paresthesia of skin Category: Medical Plan: We will try gabapentin. Nerve conduction studies ordered (4) Prediabetes: Code(s): R73.03 - Prediabetes Category: Medical Plan: I will start her on metformin. Discussed risks and benefits and adverse effects of the medication. (5) Bilateral foot pain: Code(s): M79.671 - Pain in right foot; M79.672 - Pain in left foot Category: Medical Plan: ? plantar fasciitis. Discussed with her that physical exam and history sounds consistent with this. I have referred her to Podiatry. Advised to try stretching for this specifically. (6) Skin lesion of right leg: Code(s): L98.9 - Disorder of the skin and subcutaneous tissue, unspecified Category: Medical Plan: referral to derm Orders: Orders XR Foot Ovi 3V Today M79.671 - Pain in right foot, M79.672 - Pain in left foot NE nerve conduction velocity Today M54.50 - Low back pain, unspecified, R20.2 - Paresthesia of skin, R73.03 - Prediabetes NE electromyogram (EMG) Today M54.50 - Low back pain, unspecified, R20.2 - Paresthesia of skin, R73.03 - Prediabetes XR lumbar spine 2-3V Today M54.50 - Low back pain, unspecified Referrals Orthopedics Referral M25.561 - Pain in right knee, M25.562 - Pain in left knee Physiatry Referral M54.50 - Low back pain, unspecified Podiatry Referral M79.671 - Pain in right foot, M79.672 - Pain in left foot Dermatology Referral L98.9 - Disorder of the skin and subcutaneous tissue, unspecified Medications: New metformin ER (Fortamet) 500 mg PO DAILY 90 tabs 0RF gabapentin 300 mg PO BEDTIME 90 caps 0RF Changed From montelukast 10 mg PO DAILY 90 tabs 0RF To montelukast 10 mg PO DAILY PRN
[2025-02-12 14:30] VITALS: BP 112/76; PULSE 65; RESP 14; TEMP 37.1; O2SAT 97; BMI 47.5
== END 2025-02-12 15:01 | disposition home or self-care (01) ==
LOC: HO.HMCFM 14:15
PROVIDERS: PCP Physician Assistant; Visit Provider Physician Assistant
DX: M25.561 Pain in right knee (principal); M25.562 Pain in left knee; M54.50 Low back pain, unspecified; R20.2 Paresthesia of skin; R73.03 Prediabetes; M79.671 Pain in right foot; M79.672 Pain in left foot; L98.9 Disorder of the skin and subcutaneous tissue, unspecified

== ENCOUNTER 2025-02-18 15:01 | Outpatient (REF) | payer OTHER, SELFPAY | END 2025-02-18 15:02 | disposition home or self-care (01) | LOC: HO.LNP 15:01 | PROVIDERS: PCP Physician Assistant; Visit Provider Surgery | DX: N64.89 Other specified disorders of breast (principal); L91.8 Other hypertrophic disorders of the skin | CPT/HCPCS: 11400; 88304; 88305 ==

== ENCOUNTER 2025-02-18 15:01 | Outpatient (AMB) | payer OTHER, SELFPAY ==
--- NOTE | 2025-02-18 15:11 | MHC.OFFVIS ---
Vital Signs 02/18/25 15:22 Height 5 ft 1 in Weight 253 lb BMI 47.8 BP 145/71 H Blood Pressure Location Lt brachial Position Sitting Pulse 68 Intake Visit Reasons: other hypertrophic disorder of the skin Intake Note: Patient is seen in office for evaluation of the left breast. Pt c/o: feel a lump on the left nipple for months, increase in size, denies redness, discharge, pain or other concerns, had breast reduction in the past with no complications, denies fm hx breast cancer Market Development Specialist Required: Yes Market Development Specialist Language: Florist Supplies Salesperson Services: Market Development Specialist Present Market Development Specialist Name: Noy TAPIA Information Interpreted: non-clinical & clinical Stuffing Machine Operator: Stuffing Machine Operator Present Accompanied by: Self / Same As Patient Allergies No Known Allergies Allergy (Verified 02/21/25 14:10) HPI Comments Details: 39-year-old female patient presenting for evaluation of a left nipple lesion. She 1st noted the lesion several months ago and feels that this has increased in size since then. She denies any previous history of breast problems but has undergone previous breast surgery, a bilateral breast reduction. She denies any problems with wound healing following the breast reduction. Her family history is negative for breast cancer. She is with 1 spontaneous . She denies any bleeding, Patient is seen in office for evaluation of the left breast. Pt c/o: feel a lump on the left nipple for months, increase in size, denies redness, discharge, pain or other concerns, had breast reduction in the past with no complications, denies fm hx breast cancer [facility] Medical History NESTOR III (cervical intraepithelial neoplasia grade III) with severe dysplasia Snoring PSVT (paroxysmal supraventricular tachycardia) Sinusitis Asthma Thyroid disease Palpitations HTN (hypertension) Surgical History S/P bilateral breast reduction H/O myomectomy Family History Mother Asthma HTN (hypertension) Thyroid disorder Father HTN (hypertension) Hypercholesteremia Cancer Social History Housing: Apartment Alcohol intake: current Alcohol intake frequency: holidays/special occasions only Patient Tobacco Use Status: Former Tobacco user Tobacco use type: Cigarette Cigarettes Per Day: 6 Years Smoked: quit 5 months ago. 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 Current occupational exposures/hazards: No Cognitive needs: No Hearing needs: No Vision needs: No Female Reproductive History Menstrual Age of Menarche: 10 Date of last menstrual period: 02/12/25 Total pregnancies: 1 Number of Living Children: 0 Ab spontaneous: 1 Physical Exam Vital Signs: Last Vital Signs Pulse 68 02/18/25 15:22 BP 145/71 H 02/18/25 15:22 BMI result Body Mass Index 47.8 Const General: cooperative and no acute distress Nutritional Appearance: well nourished Orientation/consciousness: patient oriented x3 Limitations: no limitations HEENT Head: Yes normocephalic and Yes atraumatic Ears: hearing grossly normal bilaterally Chest Other: Left breast: No skin change, no nipple retraction, no nipple discharge, no palpable mass, no enlarged lymph nodes. Skin lesion on left nipple, 3 mm diameter as noted below. Right breast: No skin change, no nipple retraction, no nipple discharge, no palpable mass, no enlarged lymph nodes Chest/axillae images:  1. Skin growth left nipple, 3 mm diameter Resp Effort & Inspection: normal respiratory effort, no audible wheezes, no cough and no respiratory distress Cardio Jugular venous distension: no JVD GI Inspection: Yes normal to inspection Skin Other: Warm, dry, no rash Neuro General: patient oriented x3 Extrem General: Yes no clubbing, cyanosis or edema Office Procedures Excision Details: Preoperative diagnosis: Skin lesion left nipple Postoperative diagnosis: Same Procedure: Excision skin lesion left nipple Surgeon: Joshua Whitt MD Day Care Worker: None Anesthesia: Lidocaine 1% with epinephrine Indications for procedure: Gradually enlarging skin lesion left nipple measuring approximately 3 mm in diameter. Operative findings: Skin lesion left nipple of unknown etiology and unknown malignant potential Specimen: Skin lesion left nipple Estimated blood loss: Less than 2 mL Complications: None Procedure details: Patient was placed in a supine position. After assuring informed consent the left nipple was prepped with Betadine and draped in a sterile fashion. Local anesthesia was then infiltrated below the lesion. A 15 blade was then used to excise the lesion. A single 4-0 Polysorb suture was used to close the incision. The specimen was passed off the table and sent to pathology for further examination. Sterile dressings consisting of a small Band-Aid was then applied. The patient tolerated the procedure well and was discharged in stable condition. 51581-ddpib/arms/legs < 0.5cm Procedure code (CPT) selection complete Assessment & Plan Assessment & Plan (1) Lesion of left nipple: Code(s): N64.9 - Disorder of breast, unspecified Category: Medical Plan 39-year-old female patient presenting with a skin lesion of the left nipple of unknown malignant potential. This was excised today under local anesthesia and the patient tolerated this well. We will await pathology results. Orders: Orders Surgical 02/18/25 N64.9 - Disorder of breast, unspecified Medications: Discontinued metformin ER Discontinued Reason: Doctor's Order 500 mg PO DAILY 90 tabs 0RF Coding Level of Care Code New Pt Level 4 (69467) Diagnoses Lesion of left nipple N64.9 CPT Codes Trunk/Arms/Legs - CPT: 00951-kvhqo/arms/legs < 0.5cm ([id number])
[2025-02-18 15:22] VITALS: BP 145/71; PULSE 68; BMI 47.8
== END 2025-02-18 15:38 | disposition home or self-care (01) ==
LOC: HO.HGS 15:02
PROVIDERS: PCP Physician Assistant; Visit Provider Surgery
DX: N64.9 Disorder of breast, unspecified (principal)
CPT/HCPCS: 11400; 99204

== ENCOUNTER 2025-02-21 14:00 | Outpatient (AMB) | payer OTHER, SELFPAY ==
[2025-02-21 14:03] VITALS: BP 116/72; PULSE 76; O2SAT 95; BMI 48.1
--- NOTE | 2025-02-21 14:03 | A.OFFVIS_ITS ---
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 Inconclusive HST 03/2024(AHI-2.3, LIZETTE-89%). Patient states witnessed apnea. Goes to bed 9:30-10(takes awhile to fall asleep) wakes up around 7-8. Wakes on average 2 times Asbestos Cement Sheet Supervisor Required: Yes Asbestos Cement Sheet Supervisor Language: Pediatric Associate Services: Asbestos Cement Sheet Supervisor Offered & Declined Asbestos Cement Sheet Supervisor Name: self Information Interpreted: non-clinical & clinical Allergies No Known Allergies Allergy (Verified 02/21/25 14:10) HPI Comments Details: 39 year old female presents for a sleep evaluation, she is referred to us by her pcp. 03/2024 HST c/w no evidence for ANA, AHI is 2.6 and oxygen Nadirs to 89%. Labs reviewed with patient and she is anemic rx 325mg of ferrous sulfate. She wakes up with neck pain and headaches daily, her sister tells her she snores loudly. She had a sleep study in 03/2024. She has a h/o rhinnitis, allergies and asthma triggered by heat. She takes Montelukast 10mg po prn. She has chronic rhinnits and allergies which cause nasal congestion and is unable to breath at night. She is prediabetic started metformin 500mg at bedtime. Chronic Migraines / cyclic headaches which can last for days. She takes acetaminophen and coffee it went away in one hour. 3 per month and lasting more than 24 hours, with migrating pain l. temporal pain which can migrate from her neck to the top of her head. She uses dark shades, she has photo/phonophobia.She has vertigo. Denies n/v, dizziness, and balance issues. Intensity of headaches can be 9-10/10, after using analgesics can dull the pain. RLS symptoms and has pain bilaterally in her L>R feet and knee. She is being followed by a podiatry. Her feet feel like they are burning, tingling, and numbness at night. She gets up at night due to the uncomfortable sensation and stretches her feet or immerse them in cold water at night. When she exercises or walks for a long distance she can not walk the next day due to foot pain. EMG / NCS is scheduled. [facility] Medical History NESTOR III (cervical intraepithelial neoplasia grade III) with severe dysplasia Snoring PSVT (paroxysmal supraventricular tachycardia) Sinusitis Asthma Thyroid disease Palpitations HTN (hypertension) Surgical History S/P bilateral breast reduction H/O myomectomy Family History Mother Asthma HTN (hypertension) Thyroid disorder Father HTN (hypertension) Hypercholesteremia Cancer Social History Housing: Apartment Alcohol intake: current Alcohol intake frequency: holidays/special occasions only Patient Tobacco Use Status: Former Tobacco user Tobacco use type: Cigarette Cigarettes Per Day: 6 Years Smoked: quit 5 months ago. 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 Current occupational exposures/hazards: No Cognitive needs: No Hearing needs: No Vision needs: No Female Reproductive History Menstrual Age of Menarche: 10 Physical Exam Vital Signs: Last Vital Signs Pulse 76 02/21/25 14:03 BP 116/72 02/21/25 14:03 Pulse Ox 95 02/21/25 14:03 Oxygen Delivery Method Room Air 02/21/25 14:03 BMI result Body Mass Index 48.1 Const General: cooperative, comfortable and no acute distress Orientation/consciousness: patient oriented x3 HEENT Face and sinus: Yes face symmetric Teeth and gingiva: other (mallampti score 2) Eyes Pupils: Equal, round and reactive pupils present Neck Neck: Yes full ROM Neuro General: patient oriented x3 and moves all extremities Cranial nerves: Yes Facial sensation intact/muscles of mastication intact, Yes Equal, round and reactive pupils present, Yes Normal accommodation reflex present, Yes Normal facial strength present, Yes Midline tongue present, Yes Ability to bilaterally rotate head present and Yes Ability to bilaterally elevate shoulders present Cognition (Neuro): normal cognition Gait exam (Neuro): Normal gait present Motor exam (neuro): 5/5 motor strength present throughout Psych Appearance: grossly normal Mental Status: mental status grossly normal Thought process: Normal thought process present Thought content: Normal thought content present Results Reviewed Results Reviewed: Reviewed labs with patient Ferritin is low 19, she has anemia. A1c is 6.1 Assessment & Plan Assessment & Plan (1) Excessive daytime sleepiness: Code(s): G47.19 - Other hypersomnia Category: Medical (2) Anemia: Code(s): D64.9 - Anemia, unspecified Category: Medical Qualifiers: Anemia type: iron deficiency Iron deficiency anemia type: inadequate dietary iron intake Qualified Code(s): D50.8 - Other iron deficiency anemias (3) Snoring: Code(s): R06.83 - Snoring Category: Medical (4) Breathing difficulty: Comment: Rhinnitis/ allergies Code(s): R06.89 - Other abnormalities of breathing Category: Medical (5) Loud snoring: Code(s): R06.83 - Snoring Category: Medical (6) RLS (restless legs syndrome): Code(s): G25.81 - Restless legs syndrome Category: Medical (7) Chronic migraine w/o aura w/o status migrainosus, not intractable: Code(s): G43.709 - Chronic migraine without aura, not intractable, without status migrainosus Category: Medical Plan HST 03/2024 no evidence of ANA AHI is 2.9 and oxygen desaturation to 88%, 25% of sleep is noted for snoring. ENT Rhinnitis allergies referral to ENT for breathing difficult. Chronic migraines sumatriptan 50mg at onset of migraine, may take one additional tablet if migraine does not abort. CLAUDE start 325mg po daily of iron daily, may rotate every other day if constipated. Weight management f/u with a ladies attendant of choice, start swimming and or biking as tolerable. F/u in 3 months will consider sleep dentistry for oral appliance. Orders: Referrals Ear/Nose/Throat Referral G47.33 - Obstructive sleep apnea (adult) (pediatric), R06.83 - Snoring, R06.89 - Other abnormalities of breathing Medications: New ferrous sulfate 325 mg PO DAILY 90 tabs 3RF anemia 3 months MDD 325mg D64.9 - Anemia, unspecified sumatriptan succinate 50 mg orally PRN; do not exceed more than 100mg in a 24 hour period. 14 tabs 0RF migraine headache 1 month MDD 100mg G43.709 - Chronic migraine without aura, not intractable, without status migrainosus Patient Instructions: Sleep Hygiene provided: set a scheduled bedtime and wake time to help regulate the circadian rhythm and balance the release of pituitary hormones. Sleep in a dark room, temperatures below 68 degrees, and no devices n bed. Limit caffeinated products 6 hours prior to bed, and limit fluids 2-4 hours prior to bed. Gentle night yoga, diffusing essential oils, and playing soft music can be relaxing. Coding Level of Care Code Est Pt Level 4 (99874) Diagnoses Excessive daytime sleepiness G47.19 Iron deficiency anemia secondary to inadequate dietary iron intake D50.8 Anemia type: iron deficiency Iron deficiency anemia type: inadequate dietary iron intake Snoring R06.83 Breathing difficulty R06.89 Loud snoring R06.83 RLS (restless legs syndrome) G25.81 Chronic migraine w/o aura w/o status migrainosus, not intractable G43.709
== END 2025-02-21 15:05 | disposition home or self-care (01) ==
LOC: HO.HSMS 14:01
PROVIDERS: PCP Physician Assistant; Visit Provider Physician Assistant Medical
DX: G47.19 Other hypersomnia (principal); D50.8 Other iron deficiency anemias; R06.83 Snoring; R06.89 Other abnormalities of breathing; G25.81 Restless legs syndrome; G43.709 Chronic migraine without aura, not intractable, without status migrainosus
CPT/HCPCS: 99214

== ENCOUNTER 2025-02-25 12:39 | Outpatient (REF) | payer OTHER, SELFPAY ==
--- NOTE | ~2025-02-25 | XR_ITS ---
Exam: Three-view bilateral feet x-rays TECHNIQUE: AP, oblique, lateral view lower extremity, bilateral feet INDICATION: Right foot pain Prior: None FINDINGS: Right foot: Joint spaces are preserved. There is minimal marginal osteophyte formation involving the base of the proximal phalanx of the great toe. Small enthesophytes are present involving calcaneus at the Achilles and posterior fascial attachments. Left foot: Joint spaces are preserved. No degenerative changes are evident. Small enthesophytes are present involving calcaneus at the fascial and Achilles tendon attachments. XR/XR Foot Ovi 3V IMPRESSION: Right foot: Nonspecific enthesophytes involving calcaneus. Subtle osteophytes at the base of the proximal phalanx of the great toe. Left foot: Nonspecific enthesophytes involving calcaneus. Electronically signed by: Cooper Tilley MD 02/25/2025 01:39 PM EDT
--- NOTE | ~2025-02-25 | XR_ITS ---
EXAMINATION: XR LUMBOSACRAL SPINE CLINICAL INFORMATION: M54.50 - Low back pain, unspecified COMPARISON: May 20, 2024 TECHNIQUE: AP and lateral views FINDINGS: No acute cortical disruption or malalignment. Small marginal osteophyte formation and endplate sclerosis and the lower thoracic spine and multilevel levels of the lumbar spine. T-shaped contraceptive device overlapping the lower sacrum. Degenerative changes in the sacroiliac joints and symphysis pubis XR/XR lumbar spine 2-3V IMPRESSION: Mild to moderate multilevel thoracolumbar spondylosis. Electronically signed by: Aldo Graves MD 02/25/2025 01:34 PM EDT
--- NOTE | ~2025-02-25 | XR_ITS ---
EXAMINATION: XR KNEE, LEFT CLINICAL INFORMATION: M25.561 - Pain in right knee COMPARISON: November 28, 2024 TECHNIQUE: AP , and lateral views of the left knee. FINDINGS: There is questionable narrowing of the medial joint space. No change. There is no narrowing of the lateral joint space. There is no joint effusion. No osteophytes or soft tissue calcification is seen. Small chronic teardrop shaped calcification is again seen along the proximal lateral surface of the proximal fibula. XR/XR knee LT 2V IMPRESSION: Stable and unremarkable left knee. Electronically signed by: Cooper Tilley MD 02/25/2025 01:36 PM EDT
--- OUTSIDE RECORDS SUMMARY | 2025-02-25 14:13 | XMS_ITS | Clinical Summary ---
Author Organization [facility] Address [address] [place] [address] Care Team Providers Care Cds Sales Advisor Name Role Phone Unavailable Primary Care Provider Unavailabl e Encounters Date Type Department Care Team Description 02/25/2025 Transcribe Orders [facility] NEUROLOGY SCAN System, Provider Not In Obstructive sleep apnea (adult) (pediatric) (Primary Dx); Snoring from Last 3 Months Social History Tobacco Use Types Packs/Day Years Used Date Smoking Tobacco: Never Assessed Comments Unknown Sex and Gender Information Value Date Recorded Sex Assigned at Not on file Legal Sex Female 1:48 PM EDT Gender Identity Not on file Sexual Orientation Not on file Plan of Treatment Health Maintenance Due Date Last Done Comments Hepatitis C Virus Screening 1984 HIV Screening 1997 DTaP/Tdap/Td Vaccines (1 - Tdap) 2003 Hepatitis B Vaccines (1 of 3 - 19+ 3-dose series) 2003 HPV Vaccines (1 - 3-dose SCD M series) 2011 COVID-19 Vaccine ( - 2023-2 5 season) 2024 Pneumococcal Vaccine: Pediat phyllis (0-5 Years) and At-Risk Patients (6 to 49 Years) Aged Out No longer eligible b ased on patient's age to complete this topic
== END 2025-02-25 12:40 | disposition home or self-care (01) ==
LOC: HO.XRAY 12:39
PROVIDERS: PCP Physician Assistant; Visit Provider Physician Assistant
DX: Z30.431 Encounter for routine checking of intrauterine contraceptive device (principal); Z32.02 Encounter for pregnancy test, result negative; M25.561 Pain in right knee; M54.50 Low back pain, unspecified; M79.671 Pain in right foot; M79.672 Pain in left foot; M25.562 Pain in left knee
CPT/HCPCS: 72100; 73560; 73630; 81025

== ENCOUNTER 2025-02-25 12:39 | Outpatient (AMB) | payer OTHER, SELFPAY ==
[2025-02-25 12:41] VITALS: BMI 48.0
--- NOTE | 2025-02-25 12:41 | A.OFFVIS_ITS ---
Vital Signs 02/25/25 12:41 Height 5 ft 1 in Weight 254 lb BMI 48.0 Intake Visit Reasons: IUD Check /Biopsy Results Network Operations Lead Required: Yes Network Operations Lead Language: Printed Circuit Boards Inspector Services: Network Operations Lead Present (in person) Network Operations Lead Name: Deepthi TAPIA Information Interpreted: non-clinical & clinical Marine Diesel Technician: Marine Diesel Technician Present (Deepthi Staples REGINA) Accompanied by: Self / Same As Patient Allergies No Known Allergies Allergy (Verified 02/25/25 12:42) Is last menstrual period known: No (mirena) HPI Comments Details: The patient is presenting for IUD check after 1 st period following IUD insertion. The patient has no complaints periods are normal, not painful, and flow is normal. [facility] Medical History NESTOR III (cervical intraepithelial neoplasia grade III) with severe dysplasia Snoring PSVT (paroxysmal supraventricular tachycardia) Sinusitis Asthma Thyroid disease Palpitations HTN (hypertension) Surgical History S/P bilateral breast reduction H/O myomectomy Family History Mother Asthma HTN (hypertension) Thyroid disorder Father HTN (hypertension) Hypercholesteremia Cancer Social History Housing: Apartment Alcohol intake: current Alcohol intake frequency: holidays/special occasions only Patient Tobacco Use Status: Former Tobacco user Tobacco use type: Cigarette Cigarettes Per Day: 6 Years Smoked: quit 5 months ago. 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 Current occupational exposures/hazards: No Cognitive needs: No Hearing needs: No Vision needs: No Female Reproductive History Menstrual Age of Menarche: 10 Review of Systems Const All systems reviewed & are unremarkable except as noted in HPI and below Physical Exam Vital Signs: BMI result Body Mass Index 48.0 General: Yes no CVA tenderness External Female Exam: normal external appearance and normal appearance of the urethra Speculum Exam - Vagina: normal appearance of the vagina, normal palpation, no lesions and no masses Speculum Exam - Cervix: normal appearance of the cervix, normal palpation, no lesions, no masses, nontender and Other cervical findings present (IUD string in place) Bimanual exam- vagina & uterus: normal bimanual exam, normal palpation, uterine size normal, normal palpation, uterine shape normal, No Cervical tenderness present and non-tender Bimanual Exam- Adnexa, other: normal adnexae Back/Spine/Pelvis Back: no CVA tenderness Results AMB Test Urine AMB Test Urine Negative Last Edit by Deepthi Staples CMA on 12:46 Assessment & Plan Assessment & Plan (1) IUD check up: Code(s): Z30.431 - Encounter for routine checking of intrauterine contraceptive device Category: Medical Plan: UPT done in the office was negative. Discussed with the patient the finding on physical exam, IUD string in place, the patient was reassured. Instructions given to patient to call in case of temperature above 100.4, severe cramping/pelvic pain, abnormal discharge or abnormal uterine bleeding or if she misses her menstrual cycle. Otherwise follow-up at her annual exam appointment. All questions answered, the patient verbalized understanding. Orders: Orders AMB HCG Urine Test Today Z32.02 - Encounter for test, result negative Coding Level of Care Code Est Pt Level 3 (58114) Diagnoses IUD check up Z30.431
== END 2025-02-25 12:52 | disposition home or self-care (01) ==
LOC: HO.HWS 12:40
PROVIDERS: PCP Physician Assistant; Visit Provider Obstetrics & Gynecology
DX: Z32.02 Encounter for pregnancy test, result negative (principal); Z30.431 Encounter for routine checking of intrauterine contraceptive device
CPT/HCPCS: 99213

== ENCOUNTER → 2025-02-25 13:06 | Outpatient (BNV) | payer OTHER, SELFPAY | PROVIDERS: PCP Physician Assistant; Visit Provider Radiology Diagnostic Radiology | DX: M47.815 Spondylosis without myelopathy or radiculopathy, thoracolumbar region (principal); M17.12 Unilateral primary osteoarthritis, left knee; M77.51 Other enthesopathy of right foot and ankle | CPT/HCPCS: 72100; 73560; 73630 ==

== ENCOUNTER 2025-03-13 09:00 | Outpatient (AMB) | payer OTHER, SELFPAY ==
[2025-03-13 09:18] VITALS: BMI 48.5
--- NOTE | 2025-03-13 09:18 | A.OFFVIS_ITS ---
VS Expanded 03/13/25 09:18 Height 5 ft 1 in Weight 256 lb 9.889 oz BMI 48.5 Intake Visit Reasons: Obesity Allergies No Known Allergies Allergy (Verified 02/25/25 12:42) Nutrition Presentation Details: Pt presents for MNT f/u for obesity. Pt reports she was recently dx with pre dm and is on metformin Pt admits to increased appetite since childhood and is working on gradually making modifications Pt reports wanting to learn the portion sizes for starches Has tried meal replacements- no 7-8 am 2 slices of whole wheat/cream cheese eggs/coffee with stevia L: eating out : quesadilla/salad, water D: rice/vargas/chicken snack : cereal/fruit physical activity: ADL etoh/smoking-denies BS Monitoring Most Recent Diabetes Results: Creatinine, (0.5-1.4) 0.92 mg/dL 02/11/25 BUN, (9-16) 15 mg/dL 02/11/25 Sodium, (135-145) 139 mmol/L 02/11/25 Potassium, (3.3-5.1) 3.9 mmol/L 02/11/25 Chloride, (96-108) 106 mmol/L 02/11/25 Carbon Dioxide, (22-29) 26 mmol/L 02/11/25 Calcium, (8.4-10.2) 9.0 mg/dL 02/11/25 AST, (5-31) 22 U/L 02/11/25 ALT, (0-31) 19 U/L 02/11/25 Total Protein, (6.5-8.0) 7.2 g/dL 02/11/25 Albumin, (3.5-5.0) 3.8 g/dL 02/11/25 QHG-Qzumvae-Pg.Jeor Equation Height: 5 ft 1 in Weight: 257 lb Resting Metabolic Rate: 1775.14 Calculated Activity Level: Sedentary Calories Needed to Maintain Weight: 2130.17 [facility] Medical History NESTOR III (cervical intraepithelial neoplasia grade III) with severe dysplasia Snoring PSVT (paroxysmal supraventricular tachycardia) Sinusitis Asthma Thyroid disease Palpitations HTN (hypertension) Surgical History S/P bilateral breast reduction H/O myomectomy Family History Mother Asthma HTN (hypertension) Thyroid disorder Father HTN (hypertension) Hypercholesteremia Cancer Social History Housing: Apartment Alcohol intake: current Alcohol intake frequency: holidays/special occasions only Patient Tobacco Use Status: Former Tobacco user Tobacco use type: Cigarette Cigarettes Per Day: 6 Years Smoked: quit 5 months ago. 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 Current occupational exposures/hazards: No Cognitive needs: No Hearing needs: No Vision needs: No Female Reproductive History Menstrual Age of Menarche: 10 Assessment & Plan Assessment & Plan (1) Morbid obesity with BMI of 45.0-49.9, adult: Code(s): E66.01 - Morbid (severe) obesity due to excess calories; Z68.42 - Body mass index [BMI] 45.0-49.9, adult Category: Medical Plan: Wt: 114 Kg ( 10/01 ), 113kg (12/01), 117kg (04/03) Est kcal needs as per MSJ: 2100- 500 = 1600 (40% carb, 30% protein/fat) Est fluid needs as per 25-30 ml/d: 3400 Est prot per day as per 1 g/kg bw: 114 Recommend fiber intake : 8-10 g per day and gradually increase to 25-28 g per day for women and 35-38 g for men or as tolerated Recommend sodium intake per day : less than 1500 mg less than 2000 mg Educated patient on: ( R = reviewed V = verbalizes understanding N/R = needs review N/A = not applicable * Food sources of carbohydrate, adequate serving sizes and its role in various health conditions: R V N/R * Differences between complex carbohydrates a simple carbohydrates, role of fiber in diet: R * Lean protein sources of foods: R * Differences between types of fats and role in diet (mono on saturated fat fatty acids, saturated fatty acids, trans fats): R * Food sources of sodium in salt and healthy modifications for heart health in kidney health: R V R/V * Vitamins and minerals: R V N/R * Healthy plate method concept: R * Physical activity: Benefits a precaution: R * discussed relationship of food /exercise and glucose control:R * Patient Instructions: Reduce total carb at lunch and dinner to less than 60 g and bedtime snack to less than 20 g see meal ideas/snack ideas Coding Level of Care Code Nutr Indiv Subseq (61094) Diagnoses Morbid obesity with BMI of 45.0-49.9, adult E66.01; Z68.42 Time Spent (min) 30
--- OUTSIDE RECORDS SUMMARY | 2025-03-13 09:32 | XMS_ITS ---
Author Name [facility] Organization Unknown Problems Problem Status Onset Date Problem Type Date of Resoluti on Source Obstructive sleep apnea (adult) (pediatric) active EncounterDiagnosisAct HHCCT Snoring active EncounterDiagnosisAct HHCCT
--- OUTSIDE RECORDS SUMMARY | 2025-03-13 09:32 | XMS_ITS | Clinical Summary ---
Author Organization [facility] Address [address] [place] [address] Care Team Providers Care Nurse Leader Name Role Phone Unavailable Primary Care Provider Unavailabl e Encounters Date Type Department Care Team Description 02/25/2025 Transcribe Orders [facility] NEUROLOGY SCAN System, Provider Not In [...]
[2025-03-13 14:14] VITALS: BMI 48.6
== END 2025-03-13 09:39 | disposition home or self-care (01) ==
LOC: HO.ENCR 09:01
PROVIDERS: PCP Physician Assistant; Visit Provider Dietitian, Registered
DX: E66.01 Morbid (severe) obesity due to excess calories (principal); Z68.42 Body mass index [BMI] 45.0-49.9, adult

== ENCOUNTER → 2025-03-13 09:00 | Outpatient (BNVA) | payer OTHER, SELFPAY | PROVIDERS: PCP Physician Assistant; Visit Provider Dietitian, Registered | DX: E66.01 Morbid (severe) obesity due to excess calories (principal); Z68.42 Body mass index [BMI] 45.0-49.9, adult; Z71.3 Dietary counseling and surveillance | CPT/HCPCS: 97803 ==

== ENCOUNTER 2025-03-25 08:06 | Outpatient (AMB) | payer OTHER, SELFPAY ==
--- NOTE | 2025-03-25 08:12 | A.OFFVIS_ITS ---
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 Patient was referred by [facility] 02/12/25, X Rays were done. At today's visit Patient states that about four months ago she fell on her stairs at home. She states that she missed the last two steps causing her to fall down on her knees. Patient states that she was prescribed meloxicam and prednisone, now her knee pain is improved. She denies any locking or giving way. She has been walking for exercise. Allergies No Known Allergies Allergy (Verified 03/25/25 08:20) Medication List - Last Reconciled 03/25/25 by Dashawn Beebe MD bisoprolol fumarate 5 mg PO DAILY cyclobenzaprine 10 mg PO BEDTIME PRN ferrous sulfate 325 mg PO DAILY 3 months MDD 325mg gabapentin 300 mg PO BEDTIME gabapentin 300 mg PO BEDTIME hydrochlorothiazide 12.5 mg PO DAILY levonorgestrel (Mirena) intrauterine metformin ER 500 mg PO DAILY montelukast 10 mg PO DAILY PRN sumatriptan succinate 50 mg orally PRN; do not exceed more than 100mg in a 24 hour period. 1 month MDD 100mg PFSH Medical History NESTOR III (cervical intraepithelial neoplasia grade III) with severe dysplasia Snoring PSVT (paroxysmal supraventricular tachycardia) Sinusitis Asthma Thyroid disease Palpitations HTN (hypertension) Surgical History S/P bilateral breast reduction H/O myomectomy Family History Mother Asthma HTN (hypertension) Thyroid disorder Father HTN (hypertension) Hypercholesteremia Cancer Social History Housing: Apartment Alcohol intake: current Alcohol intake frequency: holidays/special occasions only Patient Tobacco Use Status: Former Tobacco user Tobacco use type: Cigarette Cigarettes Per Day: 6 Years Smoked: quit 5 months ago. 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 Current occupational exposures/hazards: No Cognitive needs: No Hearing needs: No Vision needs: No Female Reproductive History Menstrual Age of Menarche: 10 Physical Exam Const Other: Well-nourished well-developed very friendly female awake alert and oriented x3 in no acute distress Extrem Other: Bilateral knee examination shows minimal effusions, minimal crepitus with range of motion, no instability, tenderness along her medial joint lines, positive Umu's tests Results Reviewed Results Reviewed: X-rays of the patient's bilateral knee show minimal joint space narrowing, no acute bony abnormalities Assessment & Plan Assessment & Plan (1) Bilateral knee pain: Code(s): M25.561 - Pain in right knee; M25.562 - Pain in left knee Category: Medical Plan Dipti presents with bilateral knee pains most likely due to soft tissue and bony contusion as well as possible meniscus tearing. I had a lengthy discussion with the patient regarding the treatment options. At this time the patient's symptoms are tolerable to her. She will continue with her exercise program. She will follow up with me on an as-needed basis should her symptoms worsen in any way. Feel free to call me at any time should questions regarding her orthopedic management arise. I spent 20 minutes in reviewing the patient's records and imaging studies, seeing the patient and documenting in the medical record. Coding Level of Care Code New Pt Level 3 (12374) Complex EM visit Add On G2211 Diagnoses Bilateral knee pain M25.561; M25.562
--- OUTSIDE RECORDS SUMMARY | 2025-03-25 09:04 | XMS_ITS | Clinical Summary ---
Author Organization [facility] Address [address] [place] [address] Care Team Providers Care Internet Marketing Intern Name Role Phone Unavailable Primary Care Provider Unavailabl e Encounters Date Type Department Care Team Description 02/25/2025 Transcribe Orders [facility] NEUROLOGY SCAN System, Provider Not In Obstructive [...] 3-dose SCD M series) 2011 COVID-19 Vaccine (1 - 2023-2 5 season) 2025 Pneumococcal Vaccine: Pediat phyllis (0-5 Years) and At-Risk Patients (6 to 49 Years) Aged Out No longer eligible b ased on patient's age to complete this topic
--- OUTSIDE RECORDS SUMMARY | 2025-03-25 09:04 | XMS_ITS | Clinical Summary ---
Author Organization 175 [facility] Address [address] [place] [address] Phone Care Team Providers Care Alpaca Farmer Name Role Phone Deanne Fox Primary Care Provider [phone] Social History Tobacco Use Types Packs/Day Years Used Date Smoking Tobacco: Never Assessed Comments Unknown Sex and Gender Information Value Date Recorded Sex Assigned at Not on file Legal Sex Female 11:05 AM EDT Gender Identity Not on file Sexual Orientation Not on file Plan of Treatment Upcoming Encounters Date Type Department Care Team ([facility] Contact Info) Description 05/12/2025 2:00 PM EST Office Visit Orthopedic Surgery [facility] [address] [address] Matt Zayas, DPM [address] [phone] Health Maintenance Due Date Last Done Comments Breast Cancer Screening 1984 DTaP,Tdap,and Td Vaccines (1 - Tdap) 2003 Hepatitis B Vaccines (1 of 3 - 19+ 3-dose series) 2003 Cervical Cancer Screening: P ap Smear 2005 HIV Screening 02/09/2024 Hepatitis C Screening 02/09/2024 Social Influencers of Health Screening 02/09/2024 Depression Screening 07/10/2024 COVID-19 Vaccine ( - 2023-2 5 season) 2025 Influenza Vaccine (#1) 2025 HIB Vaccines Aged Out No longer eligi ble based on patient's age to complete this topic HPV Vaccines Aged Out No longer eligi ble based on patient's age to complete this topic Hepatitis A Vaccines Aged Out No long er eligible based on patient's age to complete this topic IPV Vaccines Aged Out No longer eligi ble based on patient's age to complete this topic MMR Vaccines Aged Out No longer eligi ble based on patient's age to complete this topic Meningococcal ACWY Vaccine Aged Out N o longer eligible based on patient's age to complete this topic Meningococcal B Vaccine Aged Out No l onger eligible based on patient's age to complete this topic Pneumococcal Vaccine: Pediat rics (0 to 5 Years) and At-Risk Patients (6 to 49 Years) Aged Out No longer eligible b ased on patient's age to complete this topic RSV Immunization Patients Un darlene 20 months Aged Out No longer eligible b ased on patient's age to complete this topic Varicella Vaccines Aged Out No longer eligible based on patient's age to complete this topic Insurance [facility] Care Teams Alpaca Farmer Relationship Specialty Start Date End Date Deanne Fox PA [address] [place] [address] PCP - General Physician Top Collar Baster 02/17/25
== END 2025-03-25 08:31 | disposition home or self-care (01) ==
LOC: HO.HOS 08:06
PROVIDERS: PCP Physician Assistant; Visit Provider Orthopaedic Surgery
DX: M25.561 Pain in right knee (principal); M25.562 Pain in left knee
CPT/HCPCS: 99203

== ENCOUNTER 2025-04-16 09:13 | Outpatient (REF) | payer OTHER, SELFPAY ==
[2025-04-16 11:48] LABS: MANUAL DIFF FLAG NO
[2025-04-16 11:51] LABS: Hematocrit 37.8 % (37.0-47.0); Hemoglobin 12.1 g/dl (12.0-16.0); Imm Gran Abs Auto 0.04 X10*3/uL (0.00-0.03); Imm Gran Pct Auto 0.4 % (0.0-0.4); Lymphocytes Absolute Auto 2.7 X10*3/uL (1.2-4.9); Mean Corpuscular HGB Conc 32.0 g/dl (31.0-35.0); Mean Corpuscular Hemoglobin 26.2 pg (27.0-33.0); Mean Corpuscular Volume 82.0 fL (80.0-98.0); NRBC Abs Auto 0.000 X10*3/uL (0.0-0.012); NRBC Pct Auto 0.0 /100WBC (0.0-0.2); Platelet Count 451 X10*3/uL (160-400); Red Blood Count 4.61 X10*6/uL (4.20-5.50); White Blood Count 9.3 X10*3/uL (4.8-10.8)
[2025-04-16 12:10] LABS: Total Hemoglobin (HGBA1C) 3230.6301 umol/L
[2025-04-16 15:09] LABS: Alanine Aminotransferase 18 U/L (0-31); Albumin Level 4.0 g/dL (3.5-5.0); Alkaline Phosphatase 88 U/L (39-117); Anion Gap 10 (12-20); Aspartate Amino Transferase 23 U/L (5-31); Blood Urea Nitrogen 17 mg/dL (9-16); Calcium 9.4 mg/dL (8.4-10.2); Carbon Dioxide 27 mmol/L (22-29); Chloride 105 mmol/L (96-108); Estimated Glomerular Filt Rate > 60; Potassium 4.0 mmol/L (3.3-5.1); Sodium 138 mmol/L (135-145); Total Protein 7.1 g/dL (6.5-8.0)
== END 2025-04-16 09:14 | disposition home or self-care (01) ==
LOC: HO.WFDLDS 09:13
PROVIDERS: Visit Provider Physician Assistant
DX: I10 Essential (primary) hypertension (principal); R73.03 Prediabetes; E66.01 Morbid (severe) obesity due to excess calories; Z68.42 Body mass index [BMI] 45.0-49.9, adult; R73.01 Impaired fasting glucose; M54.50 Low back pain, unspecified; M79.604 Pain in right leg; M79.605 Pain in left leg
CPT/HCPCS: 36415; 80053; 83036; 84443; 85025

== ENCOUNTER 2025-04-16 15:18 | Outpatient (AMB) | payer OTHER, SELFPAY ==
--- NOTE | 2025-04-16 15:21 | MHC.PC.OV ---
Vital Signs 04/16/25 15:22 Height 5 ft 1 in BMI Reason not done Patient refused/unable BP 116/66 Blood Pressure Location Rt brachial Position Sitting Pulse 78 Pulse Source Pulse Oximeter Pulse Oximetry (%) 98 Oxygen Delivery Method Room Air Intake Visit Reasons: 1 month follow up meds Intake Note: One month follow up Allergies No Known Allergies Allergy (Verified 04/16/25 15:24) Medication List - Last Reconciled 04/16/25 by Deanne Fox PA-C bisoprolol fumarate 5 mg PO DAILY cyclobenzaprine 10 mg PO BEDTIME PRN ferrous sulfate 325 mg PO DAILY 3 months MDD 325mg hydrochlorothiazide 12.5 mg PO DAILY levonorgestrel (Mirena) intrauterine metformin ER 500 mg PO DAILY montelukast 10 mg PO DAILY PRN sumatriptan succinate 50 mg orally PRN; do not exceed more than 100mg in a 24 hour period. 1 month MDD 100mg Tobacco use date assessed: 02/12/25 Dental Screening Dental Screen Date: 11/13/24 HPI 1 month follow up meds HPI Details Patient is a 39 year-old female who presents today for a follow up. Msk: She states her knee pain is improved with the meloxicam. She did follow with ortho. She was referred to physiatry but does not have the appointment yet because she wants to wait for her MRI which is scheduled later this month. Her back is a bit better. She has been using lidocaine patches from a friend which is very helpful. Endo: Recent labs came back showing prediabetes. Her A1c has increased despite being on metformin. She has tried taking 2 metformin and has some GI upset with this. She is following with a president ceo & founder. She says that she knows that she needs to be better with her diet. PULM: Requests a refill on her montelukast. States that she uses this for her asthma prevention. Rarely needs to use her albuterol. CV: Has seen Cardiology. Blood pressure today in the office is 116/66. She is on bisoprolol 5 mg daily and hydrochlorothiazide 12.5 mg every morning. Designated Broker: Following with gynecology for her abnormal uterine bleeding and abnormal Paps. Had neg pelvic u/s. Mammo: [facility] Medical History NESTOR III (cervical intraepithelial neoplasia grade III) with severe dysplasia Snoring PSVT (paroxysmal supraventricular tachycardia) Sinusitis Asthma Thyroid disease Palpitations HTN (hypertension) Surgical History S/P bilateral breast reduction H/O myomectomy Family History Mother Asthma HTN (hypertension) Thyroid disorder Father HTN (hypertension) Hypercholesteremia Cancer Social History Housing: Apartment Alcohol intake: current Alcohol intake frequency: holidays/special occasions only Patient Tobacco Use Status: Former Tobacco user Tobacco use type: Cigarette Cigarettes Per Day: 6 Years Smoked: quit 5 months ago. 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 Current occupational exposures/hazards: No Cognitive needs: No Hearing needs: No Vision needs: No Female Reproductive History Menstrual Age of Menarche: 10 Questionnaire Thrive Questionnaire Date Thrive assessed: 11/13/24 I am a: Patient What is your living situation today?: I have a steady place to live Within the past 12 months, did the food you bought not last and you didn't have the money to get more?: Never true Within the past 12 months, did you worry whether your food would run out before you got money to buy more?: Never true Do you have trouble paying for medicines?: No Do you have trouble getting transportation to medical appointments?: No Do you have trouble paying your heating and electricity bill?: No Do you have trouble taking care of your child, family member or friend?: No Do you have trouble with day-to-day activities such as bathing, preparing meals, shopping, managing finances, etc.?: No Are you currently unemployed and looking for a job?: No Are you interested in more education?: No Please select the resources that you would like help with: None Currently or been in a relationship where the following occur: No concerns reported THRIVE Score: 0 JIMMY-7 AMB Questionnaire JIMMY-7 Date JIMMY - 7 assessed: 01/03/24 Source: Developed by Drs. Ernesto Dasilva, Lesley Morris, Emmanuel Billy and colleagues, with an educational reese from [employer]. Physical exam (Primary Care) Vital Signs: Last Vital Signs Pulse 78 04/16/25 15:22 BP 116/66 04/16/25 15:22 Pulse Ox 98 04/16/25 15:22 Oxygen Delivery Method Room Air 04/16/25 15:22 Tobacco/Smoking Status: Tobacco use Status Tobacco use date assessed 02/12/25 04/16/25 15:28 Patient Tobacco Use Status Former Tobacco user 04/16/25 15:28 Tobacco use type Cigarette 04/16/25 15:28 e-Cigarette/Vaping Use Never Used 04/16/25 15:28 Thrive Assessment: Date of Thrive Assessment Date Thrive assessed 11/13/24 04/16/25 15:28 Currently or been in a relationship where the following occur: No concerns reported Const Orientation/consciousness: patient oriented x3 HENMT Ears: hearing grossly normal bilaterally Neck Thyroid: Thyroid normal Lymphatic: no lymphadenopathy noted Resp Auscultation: clear to auscultation bilaterally Cardio Rate: regular rate Rhythm: regular rhythm Heart sounds: S1 normal heart sound present and S2 normal heart sound present GI Inspection: Yes normal to inspection Palpation (GI): Soft to palpation and Other GI palpation findings present (nontender, no cva tenderness) Auscultation: normoactive bowel sounds Rectal Exam - Female: deferred Skin General skin exam: no rashes or lesions noted Neuro General: patient oriented x3, gait normal and no focal motor deficits Results Reviewed Results Reviewed: Laboratory Tests 04/16/25 09:15 Sodium 138 Potassium 4.0 Chloride 105 Carbon Dioxide 27 Anion Gap 10 L BUN 17 H Creatinine 0.84 Estimated GFR > 60 Fasting Glucose 94 Hemoglobin A1c % 6.2 H AST 23 ALT 18 TSH 1.80 Coding Level of Care Code Est Pt Level 4 (71106) Complex EM visit Add On G2211 Diagnoses Prediabetes R73.03 Morbid obesity with BMI of 45.0-49.9, adult E66.01; Z68.42 Primary hypertension I10 Hypertension type: primary hypertension Lumbar pain with radiation down both legs M54.50; M79.604; M79.605 Assessment & Plan Assessment & Plan (1) Prediabetes: Code(s): R73.03 - Prediabetes Category: Medical Plan: will add trulicity (2) Morbid obesity with BMI of 45.0-49.9, adult: Code(s): E66.01 - Morbid (severe) obesity due to excess calories; Z68.42 - Body mass index [BMI] 45.0-49.9, adult Category: Medical Plan: as above (3) HTN (hypertension): Code(s): I10 - Essential (primary) hypertension Category: Medical Qualifiers: Hypertension type: primary hypertension Qualified Code(s): I10 - Essential (primary) hypertension Plan: wnl continue current plan (4) Lumbar pain with radiation down both legs: Code(s): M54.50 - Low back pain, unspecified; M79.604 - Pain in right leg; M79.605 - Pain in left leg Category: Medical Plan: mri at the end of the month she is booked with physiatry Medications: New dulaglutide (Trulicity) 0.75 mg (0.5 mL) subcut QWEEK 2 mL 4RF omeprazole 20 mg PO DAILY 90 caps 2RF lidocaine 5% leave on most painful area for up to 12 hrs 3 patches topical DAILY 30 ea 2RF
[2025-04-16 15:22] VITALS: BP 116/66; PULSE 78; O2SAT 98
== END 2025-04-16 16:04 | disposition home or self-care (01) ==
LOC: HO.HMCFM 15:18
PROVIDERS: PCP Physician Assistant; Visit Provider Physician Assistant
DX: R73.03 Prediabetes (principal); E66.01 Morbid (severe) obesity due to excess calories; Z68.42 Body mass index [BMI] 45.0-49.9, adult; I10 Essential (primary) hypertension; M54.50 Low back pain, unspecified; M79.604 Pain in right leg; M79.605 Pain in left leg

== ENCOUNTER 2025-04-22 13:06 | Outpatient (REF) | payer OTHER, SELFPAY ==
--- NOTE | 2025-04-22 14:23 | EMG_ITS ---
Chief complaint:?Numbness of skin, prediabetic, LBP Reason for referral: R73.03 Prediabetes Referred by:?Deanne Fox Procedure done: Lower extremities NCS/EMG Bilateral peroneal and tibial motor studies were performed with F responses. Bilateral tibial H reflexes were obtained bilateral superficial peroneal and sural sensory studies were performed. EMG needle examination was performed. Bilateral median and lateral mixed plantars sensory studies were performed. All electrical parameters were within normal range. Impression: This is an unremarkable study with no evidence of local or generalized large fiber peripheral neuropathy or radiculopathy. MTDD
--- OUTSIDE RECORDS SUMMARY | 2025-04-22 15:49 | XMS_ITS | Clinical Summary ---
Author Organization [facility] Address [address] [place] [address] Care Team Providers Care Tape Rules Printing Machine Operator Name Role Phone Unavailable Primary Care Provider Unavailabl e Encounters Date Type Department Care Team Description 02/25/2025 Transcribe Orders [facility] NEUROLOGY SCAN System, Provider Not In [...] of 3 - 19+ 3-dose series) 2003 COVID-19 Vaccine (2023-2 5 season) 2025 HPV Vaccines (No Doses Required) Completed Pneumococcal Vaccine: Pediat phyllis (0-5 Years) and At-Risk Patients (6 to 49 Years) Aged Out No longer eligible b ased on patient's age to complete this topic
--- OUTSIDE RECORDS SUMMARY | 2025-04-22 15:49 | XMS_ITS | Clinical Summary ---
Author Organization 175 [facility] Address [address] [place] [address] Phone Care Team Providers Care Stem Roller Operator Name Role Phone Deanne Fox Primary Care Provider Social History Tobacco Use Types Packs/Day Years Used Date Smoking Tobacco: Never Assessed Comments Unknown Sex and Gender Information Value Date Recorded Sex Assigned at Not on file Legal Sex Female 11:05 AM EDT Gender Identity Not on file Sexual Orientation Not on file Plan of Treatment Upcoming Encounters Date Type Department Care Team ([facility] Contact Info) Description 05/12/2025 2:00 PM EST Office Visit Orthopedic Surgery [facility] [address] [phone] Matt Zayas, DPM [address] [phone] Health Maintenance Due Date Last Done Comments Breast Cancer Screening 1984 DTaP,Tdap,and Td Vaccines (1 - Tdap) 2003 Hepatitis B Vaccines (1 of 3 - 19+ 3-dose series) 2003 Cervical Cancer Screening: P ap Smear 2005 HPV Vaccines (1 - 3-dose SCD M series) 2011 HIV Screening 02/09/2024 Hepatitis C Screening 02/09/2024 Social Influencers of Health Screening 02/09/2024 Depression Screening 07/10/2024 COVID-19 Vaccine ( - 2023-2 5 season) 2025 Influenza Vaccine (#1) 2025 RSV Immunization Adult Patie nts (1 - 1-dose 75+ series) 2059 HIB Vaccines Aged Out No longer eligi [...] patient's age to complete this topic Insurance [facility] Care Teams Stem Roller Operator Relationship Specialty Start Date End Date Deanne Fox PA [address] [place] [phone] PCP - General Physician Investigation Clerk 02/17/25
== END 2025-04-22 13:07 | disposition home or self-care (01) ==
LOC: HO.NEURO 13:06
PROVIDERS: PCP Physician Assistant; Visit Provider Physician Assistant
DX: R73.03 Prediabetes (principal); R20.2 Paresthesia of skin; M54.50 Low back pain, unspecified
CPT/HCPCS: 95886; 95913

== ENCOUNTER → 2025-04-22 14:23 | Outpatient (BNV) | payer OTHER, SELFPAY | PROVIDERS: PCP Physician Assistant; Visit Provider Psychiatry & Neurology Neurology | DX: R73.03 Prediabetes (principal) | CPT/HCPCS: 95886; 95913 ==

== ENCOUNTER 2025-04-30 19:12 | Outpatient (REF) | payer OTHER, SELFPAY ==
--- NOTE | ~2025-04-30 | MR_ITS ---
EXAMINATION: MR LUMBAR SPINE WITHOUT CONTRAST CLINICAL INFORMATION: R 20.2. Paresthesia of skin. COMPARISON: None available. TECHNIQUE: MRI of the lumbar spine was obtained using routine sequences without contrast. FINDINGS: Last rib-bearing vertebra labeled T12. No bone marrow STIR signal abnormality. Normal alignment. Generalized decreased bone marrow signal in all sequences. Conus medullaris ends at pedicle of L2 with normal signal. T12-L1: No herniated disc. No neuroforamina stenosis. L1-2: No herniated disc. No neuroforamina stenosis. L2-3: No herniated disc. No neuroforamina stenosis. L3-4: Broad-based disc bulging. Facet joint and ligamentum flavum hypertrophy. No compression upon neural elements. L4-5: Broad-based disc bulging. Facet joint hypertrophy. No compression upon neural elements. L5-S1: Broad-based disc bulging. Facet joint hypertrophy. No compression upon neural elements. No prevertebral compartment hematoma, mass or fluid collections. There is a 1.9 cm hypointense T2 signal in the myometrium posterior fundus of the uterus. MR/MR lumbar spine wo con IMPRESSION: No acute fracture or listhesis or compression upon neural elements. Low position, L2 conus medullaris without tethered cord. Decreased bone marrow signal suggesting lymphoproliferative disorder versus calcium metabolic disorder. 1.9 cm uterine fibroid. Electronically signed by: Aldo Graves MD 05/01/2025 06:50 AM EDT
--- OUTSIDE RECORDS SUMMARY | 2025-04-30 22:32 | XMS_ITS | Clinical Summary ---
Author Organization [facility] Address [address] [place] [address] Care Team Providers Care Gun Fitter Name Role Phone Unavailable Primary Care Provider Unavailabl e Encounters Date Type Department Care Team Description 02/25/2025 Transcribe Orders [facility] NEUROLOGY SCAN System, Provider Not [...]
--- OUTSIDE RECORDS SUMMARY | 2025-04-30 22:32 | XMS_ITS | Clinical Summary ---
Author Organization 175 [facility] Address [address] [place] [address] Phone Care Team Providers Care Bulk Sausage Casing Tier Off Name Role Phone Deanne Fox Primary Care Provider [phone] Social History Tobacco Use Types Packs/Day Years Used Date Smoking Tobacco: Never Assessed Comments Unknown Sex and Gender Information Value Date Recorded Sex Assigned at Not on file Legal Sex Female 11:05 AM EDT Gender Identity Not on file Sexual Orientation Not on file Plan of Treatment Upcoming Encounters Date Type Department Care Team ([facility] Contact Info) Description 05/12/2025 2:00 PM EST Office Visit Orthopedic Surgery [facility] [address] [phone] Matt Zayas, DPM [address] [phone] Health Maintenance Due Date Last [...] patient's age to complete this topic Insurance [facility] Care Teams Bulk Sausage Casing Tier Off Relationship Specialty Start Date End Date Deanne Fox PA [address] [place] [phone] PCP - General Physician Event Planning Intern 02/17/25
== END 2025-04-30 19:13 | disposition home or self-care (01) ==
LOC: HO.MRI 19:12
PROVIDERS: PCP Physician Assistant; Visit Provider Physician Assistant
DX: R20.2 Paresthesia of skin (principal); M54.50 Low back pain, unspecified; M79.604 Pain in right leg; M79.605 Pain in left leg
CPT/HCPCS: 72148

== ENCOUNTER → 2025-04-30 19:39 | Outpatient (BNV) | payer OTHER, SELFPAY | PROVIDERS: PCP Physician Assistant; Visit Provider Radiology Diagnostic Radiology | DX: R20.2 Paresthesia of skin (principal); D25.9 Leiomyoma of uterus, unspecified | CPT/HCPCS: 72148 ==